=== PATIENT | male | born 1940 | race Caucasian/White ===

== ENCOUNTER 2018-02-11 15:12 | Emergency (ER) | payer MEDICARE, OTHER, SELFPAY ==
[2018-02-11 15:19] VITALS: BP 132/70; PULSE 58; RESP 18; TEMP 36.9; O2SAT 97; BMI 29.7
--- NOTE | 2018-02-11 15:32 | DI.US.S_ITS ---
PROCEDURE: US PERIPH VENOUS LOW EXTREM RT INDICATIONS: swelling right lower extrem, h/o PE. TECHNIQUE: Real-time imaging, as well as color and pulse Doppler interrogation, were performed of the lower extremity deep veins from the inguinal ligament to the popliteal fossa. COMPARISON: None. FINDINGS: The deep veins are normally compressible, and free of intraluminal thrombus. Color and pulse Doppler demonstrate normal phasic intraluminal flow. There is normal augmentation response to distal compression maneuver. IMPRESSION: Negative for DVT Dictated by: Chano Snow M.D. on 02/11/2018 at 16:28 Approved by: Chano Snow M.D. on 02/11/2018 at 16:29
[2018-02-11 15:41] LABS: Hematocrit 39.8 % (41-53); Hemoglobin 13.6 g/dL (13.5-17.5); Mean Corpuscular HGB Conc 34.3 % (30-36); Mean Corpuscular Hemoglobin 32.2 PG (26-34); Platelet Count 256 X10^3/uL (150-400); Red Blood Cell Count 4.23 X10^6/uL (4.5-5.9); Red Cell Distribution Width 14.6 % (11.6-14.8); White Blood Cell Count 6.5 X10^3/uL (4.5-11.0)
[2018-02-11 15:58] LABS: Alanine Aminotransferase 28 IU/L (21-72); Albumin 4.5 g/dL (3.5-5.0); Albumin Globulin Ratio 1.4 (1.0-2.8); Alkaline Phosphatase 34 U/L (38-126); Aspartate Aminotransferase 23 IU/L (17-59); Bilirubin Total 0.4 mg/dL (0.2-1.3); Blood Urea Nitrogen 27 mg/dL (9-20); Calcium 9.4 mg/dL (8.4-10.2); Carbon Dioxide 26 mmol/L (22-32); Chloride 102 mmol/L (98-107); Estimated Glomerular Filt Rate > 60.0 mL/min (>60); Globulin 3.3 g/dL (1.7-4.1); Glucose 65 mg/dL (80-110); HEMOLYSIS 27 (0-50); Potassium 4.4 mmol/L (3.4-5.1); Sodium 143 mmol/L (137-145); Total Protein 7.8 g/dL (6.3-8.2); Uric Acid 9.3 mg/dL (3.5-8.5)
[2018-02-11 16:20] LABS: Neutrophils Absolute Manual 3835 /uL (3000-5900); Total Cells Counted 100
--- NOTE | 2018-02-11 16:51 | ED.EXTPRO ---
HPI - Extremity Problem <SHARITA Bear - Last Filed: 02/11/18 22:28> General Chief complaint: Extremity Problem,Nontraumatic Stated complaint: R ANKLE SWELLING,TROUBLE WALKING Time Seen by Provider: 02/11/18 17:06 History of Present Illness HPI Narrative: 77-year-old male with history of diabetes and also gout. Here for complaint of pain into his right ankle with swelling over the past few days. He reports that he has had similar symptoms in the past he does report that he has been treated for gout in the past he states that when he gets symptoms like this and normally last for about a week and then resolved on its own. He denies any trauma to the right ankle. He denies any shortness of breath. Pain is limited to the right ankle. No fevers no chills. He reports decreased pain today compared to yesterday. He does report that yesterday was a little bit more red than it is today. He denies any other concerns or complaints. MD Complaint: extremity pain Related Data Home Medications Medication Instructions Recorded Confirmed glipizide 10 mg PO AMAC #0 06/25/17 02/11/18 [Diabetic Shoes] 1 dev MISCELLANEOUS DIRECTED 02/11/18 02/11/18 methotrexate sodium 0.5 ml PO SEEINSTR 02/11/18 02/11/18 methotrexate sodium 5 tab PO DIRECTED 02/11/18 02/11/18 metoprolol succinate 50 mg PO QPM 02/11/18 02/11/18 simvastatin [Zocor] 20 mg PO QPM 02/11/18 02/11/18 timolol 1 drp OPHTHALMIC (EYE) BID 02/11/18 02/11/18 warfarin [Coumadin] 5 - 15 mg PO HS 02/11/18 02/11/18 Previous Rx's Medication Instructions Recorded doxazosin 4 mg PO HS #90 tab 05/16/17 metformin [Glucophage] 1,000 mg PO BIDCC #180 tab 05/16/17 Glucose: Test Strips 0 str SEE INSTRUCTIONS #400 06/04/17 lisinopril 2.5 mg PO QDAY #90 tab 07/03/17 furosemide 40 mg PO QDAY #90 tab 09/17/17 potassium chloride [Klor-Con M20] 20 meq PO QDAY #30 tab 09/17/17 levothyroxine [Synthroid] 50 mcg PO QDAY #90 tab 10/22/17 colchicine 0.6 mg PO BID #20 tab 02/11/18 Allergies Allergy/AdvReac Type Severity Reaction Status Date / Time No Known Drug Allergies Allergy Verified 02/11/18 15:23 Review of Systems <SHARITA Bear - Last Filed: 02/11/18 22:28> Constitutional Denies chills, Denies fever(s), Denies lethargy and Denies weakness Eyes Denies change in vision, Denies eye discharge, Denies irritation and Denies loss of vision ENT Ears, Nose, Mouth, and Throat: Denies change in voice, Denies neck pain and Denies sore throat Cardiovascular Denies chest pain, Denies irregular heart rhythm, Denies lightheadedness, Denies palpitations, Denies dyspnea, Denies dyspnea on exertion and Denies orthopnea Respiratory Denies cough, Denies dyspnea, Denies dyspnea on exertion and Denies wheezing Gastrointestinal Gastrointestinal: Denies abdominal pain, Denies change in bowel habits, Denies diarrhea, Denies nausea and Denies vomiting Genitourinary Denies hematuria, Denies flank pain, Denies urinary incontinence and Denies urinary urgency Musculoskeletal Denies neck pain Comments: Right ankle pain Integumentary/Breasts Denies pruritus, Denies erythema, Denies rash and Denies wounds Neurologic Denies confusion, Denies loss of vision and Denies weakness Psychiatric Denies anxiety, Denies confusion, Denies depression, Denies homicidal ideation and Denies suicidal ideation Endocrine Denies palpitations Hematologic/Lymphatic Denies easy bruising Allergic/Immunologic Denies wheezing Exam <SHARITA Bear - Last Filed: 02/11/18 22:28> Initial Vital Signs Initial Vital Signs: Vital Signs Temperature 98.5 F 02/11/18 15:19 Pulse Rate 58 L 02/11/18 15:19 Respiratory Rate 18 02/11/18 15:19 Blood Pressure 132/70 H 02/11/18 15:19 Pulse Oximetry 97 02/11/18 15:19 Const General: cooperative and well developed Nutritional Appearance: well nourished Orientation: alert, awake, oriented x3 and not confused HENMT Mouth: oral mucosae normal and moist mucous membranes Eyes Conjunctivae: conjunctivae normal Sclera: sclerae normal Pupils: PERRL EOM: EOM intact bilaterally Resp Effort & Inspection: normal respiratory effort, able to speak in complete sentences, no respiratory distress and no use of accessory muscles Auscultation: clear to auscultation bilaterally, no rales, no rhonchi and no wheezes Cardio Rate: regular rate Rhythm: regular rhythm Heart Sounds: no click, no gallops, no murmurs and no rubs Pulses: normal peripheral pulses Skin General: no rashes or lesions noted, No jaundice and No petechiae Extrem Other: Swelling over the right ankle. No erythema. No increased temperature to palpation. Homans sign is negative. Distal sensation is intact. Distal range of motion is intact. Distal pulses are intact <Bryan Bustos DO - Last Filed: 02/14/18 14:10> Initial Vital Signs Initial Vital Signs: Vital Signs Temperature 98.5 F 02/11/18 15:19 Pulse Rate 58 L 02/11/18 15:19 Respiratory Rate 18 02/11/18 15:19 Blood Pressure 132/70 H 02/11/18 15:19 Pulse Oximetry 97 02/11/18 15:19 Course <SHARITA Bear - Last Filed: 02/11/18 22:28> Orders Ordered: Discontinued Medications Colchicine (Colcrys) 0.6 mg PO NOW ONE Stop: 02/11/18 17:22 Last Admin: 02/11/18 17:43 Dose: 0.6 mg Vital Signs - 8 hr 02/11/18 15:19 18 17:06 18 18:05 Temperature 98.5 F 97.2 F L Pulse Rate 58 L 56 L Respiratory Rate 18 17 20 Blood Pressure 132/70 H Blood Pressure [Left Arm] 100/81 H 184/64 H Pulse Oximetry 97 97 100 <Bryan Bustos DO - Last Filed: 02/14/18 14:10> Orders Ordered: Discontinued Medications Colchicine (Colcrys) 0.6 mg PO NOW ONE Stop: 02/11/18 17:22 Last Admin: 02/11/18 17:43 Dose: 0.6 mg Vital Signs - 8 hr 02/11/18 15:19 02/11/18 17:06 02/11/18 18:05 Temperature 98.5 F 97.2 F L Pulse Rate 58 L 56 L Respiratory Rate 18 17 20 Blood Pressure 132/70 H Blood Pressure [Left Arm] 100/81 H 184/64 H Pulse Oximetry 97 97 100 MDM - Extremity (Nontraumatic) <SHARITA Bear - Last Filed: 02/11/18 22:28> Lab Data Result diagrams: 02/11/18 15:31 02/11/18 15:31 Lab Results 02/11/18 02/11/18 Range/Units 15:31 15:31 WBC 6.5 (4.5-11.0) X10^3/uL RBC 4.23 L (4.5-5.9) X10^6/uL Hgb 13.6 (13.5-17.5) g/dL Hct 39.8 L (41-53) % MCV 94.0 (80-100) fL MCH 32.2 (26-34) PG MCHC 34.3 (30-36) % RDW 14.6 (11.6-14.8) % Plt Count 256 (150-400) X10^3/uL Total Counted 100 Seg Neutrophils % 57.0 (38-70) % Band Neutrophils % 2.0 L (3-7) % Lymphocytes % (Manual) 28.0 (25-45) % Monocytes % (Manual) 6.0 (2-11) % Eosinophils % (Manual) 7.0 H (2-4) % Neutrophils # (Manual) 3835 (7847-0226) /uL RBC Morphology Not Reportable Sodium 143 (137-145) mmol/L Potassium 4.4 (3.4-5.1) mmol/L Chloride 102 (98-107) mmol/L Carbon Dioxide 26 (22-32) mmol/L BUN 27 H (9-20) mg/dL Creatinine 1.00 (0.66-1.25) mg/dL Estimated GFR > 60.0 (>60) mL/min BUN/Creatinine Ratio 27.0 H (6-22) Glucose 65 L (80-110) mg/dL Uric Acid 9.3 H (3.5-8.5) mg/dL Calcium 9.4 (8.4-10.2) mg/dL Total Bilirubin 0.4 (0.2-1.3) mg/dL AST 23 (17-59) IU/L ALT 28 (21-72) IU/L Alkaline Phosphatase 34 L (38-126) U/L Total Protein 7.8 (6.3-8.2) g/dL Albumin 4.5 (3.5-5.0) g/dL Globulin 3.3 (1.7-4.1) g/dL Albumin/Globulin Ratio 1.4 (1.0-2.8) Imaging Data lower extremity doppler: Radiologist's impression: PROCEDURE: US PERIPH VENOUS LOW EXTREM RT INDICATIONS: swelling right lower extrem, h/o PE. TECHNIQUE: Real-time imaging, as well as color and pulse Doppler interrogation, were performed of the lower extremity deep veins from the inguinal ligament to the popliteal fossa. COMPARISON: None. FINDINGS: The deep veins are normally compressible, and free of intraluminal thrombus. Color and pulse Doppler demonstrate normal phasic intraluminal flow. There is normal augmentation response to distal compression maneuver. IMPRESSION: Negative for DVT Dictated by: Chano Snow M.D. on 02/11/2018 at 16:28 Approved by: Chano Snow M.D. on 02/11/2018 at 16:29 ankle: Radiologist's impression: PROCEDURE: XR ANKLE RT MIN 3V INDICATIONS: Swelling and pain to right ankle TECHNIQUE: 3 views of the ankle were acquired. COMPARISON: None. FINDINGS: Bones: No fractures or dislocations. Ankle mortise is normally aligned. No suspicious bony lesions. Soft tissues: No tibiotalar joint effusion. Achilles tendon appears normal. There is mild lateral malleolar soft tissue swelling. There are scattered soft tissue vascular calcifications. IMPRESSION: No acute fracture dislocation. Mild lateral malleolar soft tissue swelling. If pain persists then further characterization is warranted, consider advanced imaging with MRI or CT. Dictated by: Moraima Porter M.D. on 02/11/2018 at 17:37 Approved by: Moraima Porter M.D. on 02/11/2018 at 17:38 MDM Narrative Medical decision making narrative: Ultrasound of the right lower extremity was obtained was negative for any acute findings. X-ray was negative for any acute findings. CBC and Chem panel were unremarkable. Uric acid was elevated at 9.3. Will treat as gout with colchicine. Patient is encouraged to follow up with primary care provider later this week for re-evaluation. For any worsening symptoms return to the emergency room. Patient states has gout medication at home will allow patient to use if it is indomethacin to help with discomfort. Otherwise use [id number] Tylenol or Motrin as needed for any discomfort. Return emergency room for any worsening symptoms. INR was obtained and was at 1.9 patient states that he has been eating a lot of green leafy vegetables. He is instructed to cut down on leafy vegetables distal little bit to see if it helps with his INR. Therapeutic range for him to his is between 2 and 3. <Bryan Bustos, DO - Last Filed: 02/14/18 14:10> Lab Data Lab Results 02/11/18 02/11/18 Range/Units 15:31 15:31 WBC 6.5 (4.5-11.0) X10^3/uL RBC 4.23 L (4.5-5.9) X10^6/uL Hgb 13.6 (13.5-17.5) g/dL Hct 39.8 L (41-53) % MCV 94.0 (80-100) fL MCH 32.2 (26-34) PG MCHC 34.3 (30-36) % RDW 14.6 (11.6-14.8) % Plt Count 256 (150-400) X10^3/uL Total Counted 100 Seg Neutrophils % 57.0 (38-70) % Band Neutrophils % 2.0 L (3-7) % Lymphocytes % (Manual) 28.0 (25-45) % Monocytes % (Manual) 6.0 (2-11) % Eosinophils % (Manual) 7.0 H (2-4) % Neutrophils # (Manual) 3835 (1232-9881) /uL RBC Morphology Not Reportable Sodium 143 (137-145) mmol/L Potassium 4.4 (3.4-5.1) mmol/L Chloride 102 (98-107) mmol/L Carbon Dioxide 26 (22-32) mmol/L BUN 27 H (9-20) mg/dL Creatinine 1.00 (0.66-1.25) mg/dL Estimated GFR > 60.0 (>60) mL/min BUN/Creatinine Ratio 27.0 H (6-22) Glucose 65 L (80-110) mg/dL Uric Acid 9.3 H (3.5-8.5) mg/dL Calcium 9.4 (8.4-10.2) mg/dL Total Bilirubin 0.4 (0.2-1.3) mg/dL AST 23 (17-59) IU/L ALT 28 (21-72) IU/L Alkaline Phosphatase 34 L (38-126) U/L Total Protein 7.8 (6.3-8.2) g/dL Albumin 4.5 (3.5-5.0) g/dL Globulin 3.3 (1.7-4.1) g/dL Albumin/Globulin Ratio 1.4 (1.0-2.8) Discharge Plan Departure Patient Disposition: Home, Self-Care Clinical Impression: Ankle pain, right Discharge Date/Time: 02/11/18 18:10 Interventions: ED Discharge Assessment Last Done: 02/11/18 18:08 Instructions: DI for Gout Activity Restrictions/Additional Instructions: Ultrasound and x-ray of the right ankle was negative. Blood work today with exception a uric acid was unremarkable. Uric acid was elevated at 9.3 pointing towards gout as the cause of the right ankle pain. I prescribed colchicine to help with gout. Plenty of fluids. May use the gout medication at home along with the colchicine if it is indomethacin to help with discomfort and inflammation. Otherwise use Tylenol and Motrin as needed for any discomfort. INR today was 1.9. Decreased slightly the amount of green leafy vegetables that you have been eating to see if it brings back up your INR follow up with her primary care provider later this week for re-evaluation. For any worsening symptoms return to the emergency room. Prescriptions: New colchicine 0.6 mg tablet 0.6 mg PO BID Qty: 20 RF: 0 No Action metformin [Glucophage] 1,000 MG tablet 1,000 mg PO BIDCC Qty: 180 RF: 1 doxazosin 4 MG tablet 4 mg PO HS Qty: 90 RF: 3 Glucose: Test Strips SEE INSTRUCTIONS Qty: 400 RF: 1 glipizide 5 MG tablet 10 mg PO AMAC Qty: 0 RF: 0 lisinopril 2.5 MG tablet 2.5 mg PO QDAY Qty: 90 RF: 3 furosemide 40 MG tablet 40 mg PO QDAY Qty: 90 RF: 3 potassium chloride [Klor-Con M20] 20 MEQ tablet,ER particles/crystals 20 meq PO QDAY Qty: 30 RF: 3 levothyroxine [Synthroid] 50 MCG tablet 50 mcg PO QDAY Qty: 90 RF: 2 methotrexate sodium 25 mg/mL solution 0.5 ml PO SEEINSTR RF: 0 [Diabetic Shoes] 1 dev miscellaneous DIRECTED RF: 0 methotrexate sodium 2.5 mg Tablet 5 tab PO DIRECTED RF: 0 timolol 0.5 % Drops 1 drp ophthalmic (eye) BID RF: 0 metoprolol succinate 50 MG tablet extended release 24 hr 50 mg PO QPM RF: 0 simvastatin [Zocor] 20 MG tablet 20 mg PO QPM RF: 0 warfarin [Coumadin] 5 MG tablet 5 - 15 mg PO HS RF: 0 Referrals: Joel Alas MD [Primary Care Provider] - <Bryan Bustos DO - Last Filed: 02/14/18 14:10> Cosign ED Attending Cosignature Attestation: I was immediately available in the department for consultation. This documentation has been reviewed and I agree with assessment and plan. Supervised by Bryan Bustos DO
[2018-02-11 17:06] VITALS: BP 100/81; RESP 17; TEMP 36.2; O2SAT 97
--- NOTE | 2018-02-11 17:21 | DI.RAD.S_ITS ---
PROCEDURE: XR ANKLE RT MIN 3V INDICATIONS: Swelling and pain to right ankle TECHNIQUE: 3 views of the ankle were acquired. COMPARISON: None. FINDINGS: Bones: No fractures or dislocations. Ankle mortise is normally aligned. No suspicious bony lesions. Soft tissues: No tibiotalar joint effusion. Achilles tendon appears normal. There is mild lateral malleolar soft tissue swelling. There are scattered soft tissue vascular calcifications. IMPRESSION: No acute fracture dislocation. Mild lateral malleolar soft tissue swelling. If pain persists then further characterization is warranted, consider advanced imaging with MRI or CT. Dictated by: Moraima Porter M.D. on 02/11/2018 at 17:37 Approved by: Moraima Porter M.D. on 02/11/2018 at 17:38
[2018-02-11] MEDS: COLCHICINE 0.6 MG TABLET PO (17:43)
[2018-02-11 18:05] VITALS: BP 184/64; PULSE 56; RESP 20; O2SAT 100
== END 2018-02-11 18:10 | disposition home or self-care (01) ==
PROVIDERS: Emergency Provider Nurse Practitioner Family; PCP Family Medicine
DX: M25.571 Pain in right ankle and joints of right foot (principal); M25.471 Effusion, right ankle
CPT/HCPCS: 36415; 73610; 80053; 84550; 85025; 93971; 99283; 99284

== ENCOUNTER → 2018-05-30 10:45 | Outpatient (CLI) | payer MEDICARE, OTHER, SELFPAY ==
[2018-05-30 12:09] LABS: Add Manual Diff / Slide Review NO; Basophils Percent Auto 0.6 % (0-2); Eosinophils Percent Auto 3.2 % (2-4); Hematocrit 40.4 % (41-53); Hemoglobin 13.4 g/dL (13.5-17.5); Lymphocytes Percent Auto 22.8 % (25-40); Mean Corpuscular HGB Conc 33.3 % (30-36); Mean Corpuscular Hemoglobin 31.7 PG (26-34); Mean Corpuscular Volume 95.3 fL (80-100); Neutrophils Absolute Auto 4600 /uL (3000-5900); Neutrophils Percent Auto 66.4 % (50-75); Platelet Count 255 X10^3/uL (150-400); Red Blood Cell Count 4.23 X10^6/uL (4.5-5.9); Red Cell Distribution Width 15.3 % (11.6-14.8); White Blood Cell Count 6.8 X10^3/uL (4.5-11.0)
[2018-05-30 12:50] LABS: Erythrocyte Sedimentation Rate 19 MM/HR (0-15)
[2018-05-30 12:58] LABS: Alanine Aminotransferase 38 IU/L (21-72); Albumin 4.4 g/dL (3.5-5.0); Albumin Globulin Ratio 1.5 (1.0-2.8); Alkaline Phosphatase 35 U/L (38-126); Aspartate Aminotransferase 31 IU/L (17-59); BUN Creatinine Ratio 23.6 (6-22); Bilirubin Total 0.8 mg/dL (0.2-1.3); Blood Urea Nitrogen 26 mg/dL (9-20); Calcium 9.1 mg/dL (8.4-10.2); Carbon Dioxide 29 mmol/L (22-32); Chloride 104 mmol/L (98-107); Cholesterol 137 mg/dL (140-199); Estimated Glomerular Filt Rate > 60.0 mL/min (>60); Globulin 2.9 g/dL (1.7-4.1); Glucose 141 mg/dL (80-110); HDL Cholesterol 53 mg/dL (40-60); HEMOLYSIS < 15 (0-50); LDL Cholesterol Calculated 64 mg/dL (<100); Potassium 4.7 mmol/L (3.4-5.1); Sodium 143 mmol/L (137-145); Total Protein 7.3 g/dL (6.3-8.2); Triglycerides 100 mg/dL (35-150); Uric Acid 9.5 mg/dL (3.5-8.5)
[2018-05-30 12:59] LABS: C-Reactive Protein Quant < 0.5 mg/dL (<1.0)
[2018-05-30 13:14] LABS: TSH w/ Reflex to FT4 1.62 uIU/mL (0.47-4.68)
[2018-05-30 17:29] LABS: Hemoglobin A1C% w Est Avg Glu 6.6 % (4.0-6.0)
== END ==
PROVIDERS: PCP Family Medicine; Visit Provider Family Medicine
DX: E03.9 Hypothyroidism, unspecified (principal); E78.5 Hyperlipidemia, unspecified; I10 Essential (primary) hypertension; M10.9 Gout, unspecified; M35.3 Polymyalgia rheumatica; E11.9 Type 2 diabetes mellitus without complications; E13.620 Other specified diabetes mellitus with diabetic dermatitis
CPT/HCPCS: 36415; 80053; 80061; 83036; 84443; 84550; 85025; 85651; 86140

== ENCOUNTER → 2018-12-30 10:37 | Outpatient (CLI) | payer MEDICARE, OTHER, SELFPAY ==
--- NOTE | 2018-12-30 10:39 | DI.RAD.S_ITS ---
PROCEDURE: XR CHEST 2V INDICATIONS: fu CHF TECHNIQUE: 2 views of the chest were acquired. COMPARISON: [facility], , CHEST 1 VIEW, 06/25/2017, 12:17. FINDINGS: Surgical changes and devices: None. Lungs and pleura: Lungs are clear. No pleural effusions or pneumothorax. Mediastinum: Mediastinal contours are normal. Heart size is normal. Bones and chest wall: No suspicious bony abnormalities. Soft tissues appear unremarkable. IMPRESSION: No significant cardiac enlargement or central venous congestion. Dictated by: Shima Chavis M.D. on 12/30/2018 at 12:16 Approved by: Shima Chavis M.D. on 12/30/2018 at 12:17
[2018-12-30 11:59] LABS: BUN Creatinine Ratio 26.2 (6-22); Blood Urea Nitrogen 34 mg/dL (9-20); Calcium 9.7 mg/dL (8.4-10.2); Carbon Dioxide 25 mmol/L (22-32); Chloride 99 mmol/L (98-107); Estimated Glomerular Filt Rate 53.1 mL/min (>60); Glucose 212 mg/dL (80-110); HEMOLYSIS < 15 (0-50); Sodium 138 mmol/L (137-145)
[2018-12-30 12:00] LABS: B Type Natriuretic Peptide < 100 (<100)
[2018-12-30 12:20] LABS: Potassium 5.4 mmol/L (3.4-5.1)
== END ==
PROVIDERS: PCP Family Medicine; Visit Provider Family Medicine
DX: I50.9 Heart failure, unspecified (principal); I10 Essential (primary) hypertension
CPT/HCPCS: 36415; 71046; 80048; 83880

== ENCOUNTER → 2019-01-15 12:14 | Outpatient (CLI) | payer MEDICARE, OTHER, SELFPAY ==
[2019-01-15 13:15] LABS: Blood Urea Nitrogen 20 mg/dL (9-20); Calcium 9.3 mg/dL (8.4-10.2); Carbon Dioxide 27 mmol/L (22-32); Chloride 103 mmol/L (98-107); Estimated Glomerular Filt Rate > 60.0 mL/min (>60); Glucose 121 mg/dL (80-110); HEMOLYSIS < 15 (0-50); Potassium 4.4 mmol/L (3.4-5.1); Sodium 138 mmol/L (137-145)
== END ==
PROVIDERS: PCP Family Medicine; Visit Provider Family Medicine
DX: I10 Essential (primary) hypertension (principal)
CPT/HCPCS: 36415; 80048

== ENCOUNTER → 2020-03-30 11:26 | Outpatient (CLI) | payer MEDICARE, OTHER, SELFPAY ==
[2020-03-30 12:04] LABS: Add Manual Diff / Slide Review NO; Basophils Absolute Auto 0 /uL (0-100); Basophils Percent Auto 0.5 % (0-2); Eosinophils Absolute Auto 300 /uL (0-450); Eosinophils Percent Auto 5.3 % (2-4); Hematocrit 39.9 % (41-53); Hemoglobin 13.3 g/dL (13.5-17.5); Lymphocytes Absolute Auto 2100 /uL (1100-4500); Lymphocytes Percent Auto 33.9 % (25-40); Mean Corpuscular HGB Conc 33.5 % (30-36); Mean Corpuscular Hemoglobin 30.3 PG (26-34); Mean Corpuscular Volume 90.5 fL (80-100); Monocytes Absolute Auto 500 /uL (0-900); Monocytes Percent Auto 8.1 % (3-14); Neutrophils Absolute Auto 3200 /uL (1500-7000); Neutrophils Percent Auto 52.2 % (50-75); Platelet Count 207 X10^3/uL (150-400); Red Blood Cell Count 4.41 X10^6/uL (4.5-5.9); Red Cell Distribution Width 13.9 % (11.6-14.8); White Blood Cell Count 6.2 X10^3/uL (4.5-11.0)
[2020-03-30 12:18] LABS: Hemoglobin A1C% w Est Avg Glu 8.1 % (4.0-6.0)
[2020-03-30 12:27] LABS: Alanine Aminotransferase 21 IU/L (<50); Albumin 4.4 g/dL (3.5-5.0); Albumin Globulin Ratio 1.8 (1.0-2.8); Alkaline Phosphatase 35 U/L (38-126); Aspartate Aminotransferase 22 IU/L (17-59); Bilirubin Total 0.6 mg/dL (0.2-1.3); Blood Urea Nitrogen 22 mg/dL (9-20); Calcium 9.6 mg/dL (8.4-10.2); Carbon Dioxide 25 mmol/L (22-32); Chloride 104 mmol/L (98-107); Estimated Glomerular Filt Rate > 60.0 mL/min (>60); Globulin 2.5 g/dL (1.7-4.1); Glucose 149 mg/dL (80-110); HEMOLYSIS < 15 (0-50); Potassium 4.8 mmol/L (3.4-5.1); Sodium 137 mmol/L (137-145); Total Protein 6.9 g/dL (6.3-8.2)
[2020-03-30 12:37] LABS: NT-proBNP (BNP-Adult 18+) 391 pg/mL (<450)
[2020-03-30 12:54] LABS: Microalbumin Urine Random 1.2 mg/dL (0-1.6)
[2020-03-30 12:59] LABS: Creatinine Urine Random 134.1 mg/dL; Microalbumi Creatinin Ratio Ur 8.9 ug/mg CR (<30)
[2020-03-30 13:00] LABS: TSH w/ Reflex to FT4 2.87 uIU/mL (0.47-4.68)
== END ==
PROVIDERS: PCP Family Medicine; Referring Provider Family Medicine; Visit Provider Family Medicine
DX: E03.9 Hypothyroidism, unspecified (principal); E11.9 Type 2 diabetes mellitus without complications; E78.5 Hyperlipidemia, unspecified; I48.92 Unspecified atrial flutter; I50.9 Heart failure, unspecified; I10 Essential (primary) hypertension
CPT/HCPCS: 36415; 80053; 82043; 82570; 83036; 83880; 84443; 85025

== ENCOUNTER 2020-10-07 11:20 | Emergency (ER) | payer MEDICARE, OTHER, SELFPAY ==
[2020-10-07 11:23] VITALS: BP 193/81; PULSE 61; RESP 15; TEMP 36.4; O2SAT 97; BMI 29.7
--- NOTE | 2020-10-07 11:53 | DI.RAD.S_ITS ---
PROCEDURE: XR LUMBAR SPINE 2-3V INDICATIONS: pain after plantng trees, hx back surg TECHNIQUE: 3 views of the lumbar spine were acquired. COMPARISON: None. FINDINGS: Bones: 5 [id number] vertebrae are present. There are bilateral pedicle screws in L4 and L5 as well as a interbody fusion. There are no posterior lateral rods connecting the pedicle screws. There is no evidence of hardware failure or loosening. There is mild degenerative anterolisthesis of L5 on S1. The other vertebral bodies are normally aligned. Lower lumbar facet hypertrophy. Suspect canal stenosis at L4-L5. No vertebral body compression fractures. No suspicious bony lesions. Soft tissues: Overlying bowel gas pattern is normal. No suspicious soft tissue calcifications. IMPRESSION: 1. Lower lumbar degenerative disc space loss and facet arthropathy. 2. No evidence of acute bony abnormality of the lumbar spine. 3. Suspect canal stenosis at L4-L5. Dictated by: Phu Samano M.D. on 10/07/2020 at 12:25 Approved by: Phu Samano M.D. on 10/07/2020 at 12:28
--- NOTE | 2020-10-07 11:57 | ED.BACK ---
HPI - Back Pain/Injury <Daja Rivas, [employer] - Last Filed: 10/07/20 14:31> General Chief Complaint: Back Pain/Injury Stated Complaint: back pain x 3 Time Seen by Provider: 10/07/20 11:31 Source: patient and family Mode of arrival: Ambulatory Limitations: no limitations History of Present Illness HPI Narrative: The patient is an 80-year-old male former smoker with history of diabetes, hypothyroid who presents with his for chief complaint of lower back pain for the past several days. He states that he was planting a tree outside a few days ago. Subsequently he has had low back pain and both sides of the spine, but is getting worse. Last night he states that he had terrible spasms to the point that his pain was a 10/10. He denies any new incontinence of bowel, incontinence of bladder or numbness in his groin. He denies any personal history of cancer or current fever. He has not taken anything for his pain today. He did take 2 tablets of 10-year-old oxycodone yesterday. Related Data Home Medications Medication Instructions Recorded Confirmed [Diabetic Shoes] 1 dev MISCELLANEOUS DIRECTED 02/11/18 04/05/20 timolol 1 drp OPHTHALMIC (EYE) BID 02/11/18 04/05/20 Previous Rx's Medication Instructions Recorded blood sugar diagnostic #400 each 12/15/19 metoprolol tartrate 50 mg tablet 50 mg PO BID #180 tab 01/27/20 metformin 1,000 mg tablet 1,000 mg PO BIDCC #180 tab 03/23/20 glipizide 10 mg tablet See Rx Instructions .ROUTE BID 04/06/20 #180 each sildenafil 100 mg tablet 50 mg PO DAILY PRN #10 tab 04/07/20 lisinopril 2.5 mg tablet 2.5 mg PO QDAY #90 tab 04/19/20 warfarin 5 mg tablet 5 mg PO HS #90 tab 04/19/20 spironolactone 25 mg tablet 25 mg PO DAILY #90 tab 06/30/20 doxazosin 4 mg tablet See Rx Instructions .ROUTE 07/26/20 .COMPLEX #90 tablet levothyroxine 50 mcg tablet 50 mcg PO DAILY #90 tab 08/09/20 simvastatin 20 mg tablet 20 mg PO QPM #90 tab 08/16/20 cyclobenzaprine 10 mg PO TID PRN #20 tab 10/07/20 hydrocodone-acetaminophen [Seadrift] 1 tab PO Q4-6H PRN #10 tab 10/07/20 lidocaine 1 patch TOPICAL DAILY PRN #15 ea 10/07/20 Allergies Allergy/AdvReac Type Severity Reaction Status Date / Time oyster extract Allergy Mild Vomiting Verified 10/07/20 11:27 Review of Systems <MADYSON Winters - Last Filed: 10/07/20 14:31> Review of Systems Narrative: GENERAL: Denies chills, fatigue, malaise, fever, sweats. HEENT: Denies sinus pain, ear pain, sore throat, difficulty swallowing, dizziness. RESPIRATORY: Denies dyspnea, cough, wheezing, hemoptysis, sputum. CARDIOVASCULAR: Denies chest pain, palpitations, orthopnea, edema, GASTROINTESTINAL: Denies nausea, vomiting, abdominal pain, diarrhea, constipation, melena. : Denies dysuria, frequency, incontinence, hematuria, urinary retention. MUSCULOSKELETAL: See HPI SKIN: Denies rash, skin lesions, or other NEUROLOGIC: Denies weakness, headache, numbness, change in speech, confusion, seizures, incoordination. PSYCHIATRIC: No concerning psychosocial issues. 12 point review of systems is negative except for those stated above Patient History <MADYSON Winters - Last Filed: 10/07/20 14:31> Medical History Diabetes mellitus Hyperlipidemia Hypertension Lumbar spine pain Surgical History Status post laminectomy (2011) Status post transurethral resection of prostate Family History Father CAD (coronary artery disease) Social History marital status: Smoking Status: Former smoker alcohol intake: current (ON OCCASION ) substance use type: does not use Smoking Status: Former smoker alcohol intake frequency: a few times a month Substance Use Type: does not use Exam <MADYSON Winters - Last Filed: 10/07/20 14:31> Narrative Exam Narrative: GENERAL: This is a well-nourished, well-developed patient, in no acute distress with at bedside HEAD: Atraumatic. Normocephalic. No temporal or scalp tenderness. EYES: Pupils equal round and reactive. Extraocular motions intact. No scleral icterus. No injection or drainage. ENT: Nose without bleeding, purulent drainage or septal hematoma. On visible skin. Airway patent. NECK: Trachea midline. No JVD or lymphadenopathy. Supple, nontender, no meningeal signs. CARDIOVASCULAR: Regular rate and rhythm RESPIRATORY: Clear to auscultation. Breath sounds equal bilaterally. No wheezes, rales, or rhonchi. No cough. No increased respiratory effort. No accessory muscle use GASTROINTESTINAL: Abdomen soft, non-tender, nondistended. Active bowel sounds all 4 quadrants EXTREMITIES: No clubbing, cyanosis, or edema. No joint tenderness, effusion, or edema noted. BACK: Midline CT and L-spine are Nontender without deformity or crepitance. Pain to palpation of bilateral paraspinal muscles in the lumbar region NEURO: AOx3. Clear speech. Strength is equal upper lower extremities bilaterally. Stable gait. SKIN: No rash or erythema on visible skin. No rash on lower back. Initial Vital Signs Initial Vital Signs: Vital Signs Temperature 97.6 F 10/07/20 11:23 Pulse Rate 61 10/07/20 11:23 Respiratory Rate 15 10/07/20 11:23 Blood Pressure 193/81 H 10/07/20 11:23 Pulse Oximetry 97 10/07/20 11:23 <Daja Drew DO - Last Filed: 10/07/20 19:23> Initial Vital Signs Initial Vital Signs: Vital Signs Temperature 97.6 F 10/07/20 11:23 Pulse Rate 61 10/07/20 11:23 Respiratory Rate 15 10/07/20 11:23 Blood Pressure 193/81 H 10/07/20 11:23 Pulse Oximetry 97 10/07/20 11:23 Scores <MADYSON Winters - Last Filed: 10/07/20 14:31> GCS [place] coma scale eye opening: Spontaneous [place] coma scale verbal response: Orientated [place] coma scale motor response: Obey commands [place] coma scale total score: 15 Course <MADYSON Winters - Last Filed: 10/07/20 14:31> Orders Ordered: ED Orders 10/07/20 11:53 XR lumbar spine 2-3V Stat 10/07/20 12:14 Urine Microscopic Stat Discontinued Medications Hydrocodone Bitart/Acetaminophen (Hydrocodone/Acet 5/325 Tablet) 1 tab PO NOW ONE Stop: 10/07/20 13:08 Last Admin: 10/07/20 13:33 Dose: 1 tab Documented by: SRIRAM Cyclobenzaprine HCl (Cyclobenzaprine 10 Mg Tablet) 10 mg PO NOW ONE Stop: 10/07/20 11:54 Last Admin: 10/07/20 12:12 Dose: 10 mg Documented by: SRIRAM Lidocaine (Lidocaine Patch 1 Each Adh..Patch) 1 each TOP NOW ONE Stop: 10/07/20 11:54 Last Admin: 10/07/20 12:12 Dose: 1 each Documented by: SRIRAM Vital Signs Vital signs: Vital Signs - 8 hr 10/07/20 11:23 10/07/20 14:11 Temperature 97.6 F Pulse Rate 61 54 L Respiratory Rate 15 16 Blood Pressure 193/81 H 136/61 Pulse Oximetry 97 96 <Daja Drew, - Last Filed: 10/07/20 19:23> Orders Ordered: ED Orders 10/07/20 11:53 XR lumbar spine 2-3V Stat 10/07/20 12:14 Urine Microscopic Stat Discontinued Medications Hydrocodone Bitart/Acetaminophen (Hydrocodone/Acet 5/325 Tablet) 1 tab PO NOW ONE Stop: 10/07/20 13:08 Last Admin: 10/07/20 13:33 Dose: 1 tab Documented by: SRIRAM Cyclobenzaprine HCl (Cyclobenzaprine 10 Mg Tablet) 10 mg PO NOW ONE Stop: 10/07/20 11:54 Last Admin: 10/07/20 12:12 Dose: 10 mg Documented by: SRIRAM Lidocaine (Lidocaine Patch 1 Each Adh..Patch) 1 each TOP NOW ONE Stop: 10/07/20 11:54 Last Admin: 10/07/20 12:12 Dose: 1 each Documented by: SRIRAM Vital Signs Vital signs: Vital Signs - 8 hr 10/07/20 11:23 10/07/20 14:11 Temperature 97.6 F Pulse Rate 61 54 L Respiratory Rate 15 16 Blood Pressure 193/81 H 136/61 Pulse Oximetry 97 96 MDM - Back Pain/Injury <MADYSON Winters - Last Filed: 10/07/20 14:31> Lab Data Labs: Lab Results 10/07/20 Range/Units 12:14 Urine RBC None seen (0-5/HPF) Urine WBC None seen (0-5/HPF) Amorphous Sediment 2+ Urine Bacteria None seen (None) Ur Culture Indicated? Cult not indicated Urine Dip Bedside Urine Glucose Negative Bedside Urine Bilirubin - Negative Bedside Urine Ketone - Negative Urine Specific [place] 1.030 Bedside Urine Occult Blood +/- Bedside Urine pH 6.0 Bedside Urine Protein - Negative Bedside Urine Urobilinogen - Negative Bedside Urine Nitrite - Negative Bedside Urine Leukocytes - Negative Esterase Imaging Data lumbar xr: Radiologist's Impression: [address] [place] [id number] ReportSigned Patient: Odell Yun EMR#: [id number]: 8Acct:[id number]/Sex: 80 / MDate of Service: 10/07/20Loc: EDAccession Number: [id number] Procedure: XR lumbar spine 2-3V Ordering Provider: Daja Rivas PROCEDURE: XR LUMBAR SPINE 2-3V INDICATIONS: pain after plantng trees, hx back surg TECHNIQUE: 3 views of the lumbar spine were acquired. COMPARISON: None. FINDINGS: Bones: 5 [id number] vertebrae are present. There are bilateral pedicle screws in L4 and L5 as well as a interbody fusion. There are no posterior lateral rods connecting the pedicle screws. There is no evidence of hardware failure or loosening. There is mild degenerative anterolisthesis of L5 on S1. The other vertebral bodies are normally aligned. Lower lumbar facet hypertrophy. Suspect canal stenosis at L4-L5. No vertebral body compression fractures. No suspicious bony lesions. Soft tissues: Overlying bowel gas pattern is normal. No suspicious soft tissue calcifications. IMPRESSION: 1. Lower lumbar degenerative disc space loss and facet arthropathy. 2. No evidence of acute bony abnormality of the lumbar spine. 3. Suspect canal stenosis at L4-L5. Dictated by: Phu Samano M.D. on 10/07/2020 at 12:25 Approved by: Phu Samano M.D. on 10/07/2020 at 12:28 [facility] Narrative Medical decision making narrative: The patient is an 80-year-old male who presents with a chief complaint of lower back pain for the past several days after he was planting trees. He has no acute neurological deficits, denies any red flag symptoms such as fever, incontinence bowel incontinence of bladder numbness in his groin. He and his state understanding that these are strict ER return precautions. He feels much improved after the above-stated therapies, so prescriptions are provided. He was able to ambulate throughout the ER with steady gait independently. Discussed at length that Flexeril can be sedating, narcotics can be constipating and sedating, held off on NSAIDs given Coumadin. Encouraged follow-up primary care provider in the next few days as he may benefit from physical therapy etcetera. Patient and have no questions or concerns upon discharge states understanding return precautions as well as follow-up care. <Daja Drew, DO - Last Filed: 10/07/20 19:23> Lab Data Labs: Lab Results 10/07/20 Range/Units 12:14 Urine RBC None seen (0-5/HPF) Urine WBC None seen (0-5/HPF) Amorphous Sediment 2+ Urine Bacteria None seen (None) Ur Culture Indicated? Cult not indicated Urine Dip Bedside Urine Glucose Negative Bedside Urine Bilirubin - Negative Bedside Urine Ketone - Negative Urine Specific [place] 1.030 Bedside Urine Occult Blood +/- Bedside Urine pH 6.0 Bedside Urine Protein - Negative Bedside Urine Urobilinogen - Negative Bedside Urine Nitrite - Negative Bedside Urine Leukocytes - Negative Esterase Discharge Plan Departure Patient Disposition: Home Clinical Impression: Lower back pain Qualifiers: Chronicity: acute Back pain laterality: bilateral Sciatica presence: without sciatica Qualified Code(s): M54.5 - Low back pain Instructions: DI for Low Back Pain, DI for Back Spasm Activity Restrictions/Additional Instructions: Thank you for trusting us with your care today As I discussed, your x-ray shows no acute fracture. This does not rule out a soft tissue injury such as a ligament or tendon injury. It is important that you follow up with primary care provider, especially if worsening or no improvement. There can be fractures that did not show up on initial x-ray. As discussed, please come back to the ER for any acute concerns such as incontinence of bowel, incontinence of bladder or numbness in her groin I sent 3 different prescriptions to [facility] in [place]. This includes a muscle relaxer which can be sedating, Seadrift for pain, and lidocaine patches You have been prescribed narcotic medications. While on these medications you cannot drive or operate heavy machinery. Additionally you cannot sign legal documents or perform any duties such as this. 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 Please follow-up with primary care provider in the next few days. Please come back to the emergency department for any acute concerns Prescriptions: New cyclobenzaprine 10 mg tablet 10 mg PO TID PRN (Reason: muscle spasm) Qty: 20 RF: 0 hydrocodone-acetaminophen [Seadrift] 5-325 mg tablet 1 tab PO Q4-6H PRN (Reason: pain) Qty: 10 RF: 0 lidocaine 5 % adhesive patch,medicated 1 patch topical DAILY PRN (Reason: pain) Qty: 15 RF: 0 No Action (DME) blood sugar diagnostic [Blood Glucose Test] Strip See Rx Instructions .ROUTE .MEDSUPPLY Qty: 400 RF: 3 metoprolol tartrate 50 mg tablet 50 mg PO BID Qty: 180 RF: 3 metformin [Glucophage] 1,000 mg tablet 1,000 mg PO BIDCC Qty: 180 RF: 3 glipizide 10 mg tablet See Rx Instructions .ROUTE BID Qty: 180 RF: 3 sildenafil 100 mg tablet 50 mg PO DAILY PRN (Reason: sexual activity) Qty: 10 RF: 1 lisinopril 2.5 mg tablet 2.5 mg PO QDAY Qty: 90 RF: 3 warfarin 5 mg tablet 5 mg PO HS Qty: 90 RF: 3 spironolactone 25 mg tablet 25 mg PO DAILY Qty: 90 RF: 3 doxazosin 4 mg tablet See Rx Instructions .ROUTE .COMPLEX Qty: 90 RF: 3 levothyroxine [Synthroid] 50 mcg tablet 50 mcg PO DAILY Qty: 90 RF: 3 simvastatin 20 mg tablet 20 mg PO QPM Qty: 90 RF: 1 [Diabetic Shoes] 1 dev miscellaneous DIRECTED RF: 0 timolol 0.5 % Drops 1 drp ophthalmic (eye) BID RF: 0 Referrals: Joel Alas MD [Primary Care Provider] - <Daja Drew DO - Last Filed: 10/07/20 19:23> Cosign ED Attending Cosignature Attestation: I was immediately available in the department for consultation. Documentation has been reviewed.
[2020-10-07] MEDS: CYCLOBENZAPRINE 10 MG TABLET PO (12:12)
[2020-10-07] MEDS: LIDOCAINE PATCH 1 EACH ADH..PATCH TOP (12:12)
[2020-10-07 12:20] LABS: Bacteria Urine None Seen; RBC Urine None Seen (0-5/HPF); WBC Urine None Seen (0-5/HPF)
[2020-10-07 12:32] LABS: Amorphous Sediment Urine 2+; Culture Indicated Urine Cult Not Indicated
[2020-10-07] MEDS: HYDROCODONE/ACET 5/325 TABLET 1 TAB PO (13:33)
[2020-10-07 14:11] VITALS: BP 136/61; PULSE 54; RESP 16; O2SAT 96
== END 2020-10-07 14:12 | disposition home or self-care (01) ==
PROVIDERS: Emergency Provider Nurse Practitioner Family; PCP Family Medicine
DX: M54.5 Low back pain (principal); E11.9 Type 2 diabetes mellitus without complications; E78.5 Hyperlipidemia, unspecified; I10 Essential (primary) hypertension
CPT/HCPCS: 72100; 81003; 81015; 99283

== ENCOUNTER 2020-10-11 10:57 | Emergency (ER) | payer MEDICARE, OTHER, SELFPAY ==
--- NOTE | 2020-10-11 10:57 | ED_ITS ---
HPI - Back Pain/Injury General Chief Complaint: Back Pain/Injury Stated Complaint: back pain Time Seen by Provider: 10/11/20 10:57 Source: patient and family Mode of arrival: Ambulatory Limitations: no limitations History of Present Illness HPI Narrative: 80-year-old male former smoker with history of AFib on Coumadin, hypertension, hyperlipidemia sciatica with prior laminectomy presents with ongoing, worsening lumbar pain for the past week or so. He denies any specific trauma but states that things seem to developed after working in the [employer]. The pain is quite severe, sometimes 10/10 in his lower back but does not radiate down his legs. He denies any numbness, tingling, weakness or footdrop but does state maybe he has been having trouble controlling his bladder. He denies any fever or chills, denies any significant midline pain, denies any history of IV drugs. He was seen and evaluated here on October 07, had an x-ray that showed no significant findings and a clean urine. He was prescribed pain medications, lidoderm and states that his symptoms are worsening despite his best efforts. He called his primary care provider who encouraged him to come here for evaluation MD Complaint: back pain Onset (ago): day(s) Duration: constant and progressively worsening Similar Symptoms Previously: Yes Location: lumbar spine Severity: severe Quality: sharp and aching Radiation: none Severity scale (1-10): 10 Relieving factors: immobilization Exacerbating factors: movement and walking Associated symptoms: difficulty walking and urinary incontinence Treatments prior to arrival: prescription analgesics Related Data Home Medications Medication Instructions Recorded Confirmed [Diabetic Shoes] 1 dev MISCELLANEOUS DIRECTED 02/11/18 10/11/20 timolol 1 drp OPHTHALMIC (EYE) BID 02/11/18 10/11/20 doxazosin 4 mg PO QPM 10/11/20 10/11/20 glipizide 10 mg PO BID 10/11/20 10/11/20 levothyroxine [Synthroid] 50 mcg PO QAM 10/11/20 10/11/20 lisinopril 2.5 mg PO QAM 10/11/20 10/11/20 spironolactone 25 mg PO QPM 10/11/20 10/11/20 Previous Rx's Medication Instructions Recorded blood sugar diagnostic #400 each 12/15/19 metoprolol tartrate 50 mg tablet 50 mg PO BID #180 tab 01/27/20 metformin 1,000 mg tablet 1,000 mg PO BIDCC #180 tab 03/23/20 sildenafil 100 mg tablet 50 mg PO DAILY PRN #10 tab 04/07/20 warfarin 5 mg tablet 5 mg PO HS #90 tab 04/19/20 simvastatin 20 mg tablet 20 mg PO QPM #90 tab 08/16/20 cyclobenzaprine 10 mg PO TID PRN #20 tab 10/07/20 hydrocodone-acetaminophen [[place]] 1 tab PO Q4-6H PRN #10 tab 10/07/20 lidocaine 1 patch TOPICAL DAILY PRN #15 ea 10/07/20 cyclobenzaprine 10 mg PO TID PRN #14 tab 10/11/20 gabapentin 300 mg PO BEDTIME #14 cap 10/11/20 oxycodone 5 mg PO Q4-6H PRN #10 tab 10/11/20 Allergies Allergy/AdvReac Type Severity Reaction Status Date / Time oyster extract Allergy Mild Vomiting Verified 10/07/20 11:27 Review of Systems Constitutional Constitutional: Denies chills, Denies fatigue, Denies fever(s), Denies frequent falls, Denies lethargy and Denies weakness Eyes Eyes: Denies change in vision, Denies eye discharge, Denies irritation and Denies loss of vision ENT Ears, Nose, Mouth, and Throat: Denies change in voice, Denies dizziness, Denies neck pain, Denies sore throat and Denies throat swelling Cardiovascular Cardiovascular: Denies chest pain, Denies irregular heart rhythm, Denies lightheadedness, Denies palpitations, Denies dyspnea, Denies dyspnea on exertion and Denies orthopnea Respiratory Respiratory: Denies cough, Denies dyspnea, Denies dyspnea on exertion and Denies wheezing Gastrointestinal Gastrointestinal: Denies abdominal pain, Denies change in bowel habits, Denies diarrhea, Denies nausea and Denies vomiting Musculoskeletal Musculoskeletal: Reports back pain, Denies neck pain and Denies numbness Integumentary/Breasts Skin/Breast: Denies pruritus, Denies erythema, Denies rash and Denies wounds Neurologic Neurologic: Denies behavioral changes, Denies confusion, Denies dizziness, Denies frequent falls, Denies loss of vision, Denies numbness and Denies weakness Psychiatric Psychiatric: Denies anxiety, Denies behavioral changes, Denies confusion, Denies depression, Denies homicidal ideation and Denies suicidal ideation Endocrine Endocrine: Denies fatigue, Denies flushing and Denies palpitations Hematologic/Lymphatic Hematologic/Lymphatic: Denies easy bruising Allergic/Immunologic Allergic/Immunologic: Denies urticaria, Denies throat swelling and Denies wheezing Patient History Medical History (Updated 10/11/20 @ 13:04 by Travis Rodríguez DO) Diabetes mellitus Hyperlipidemia Hypertension Lumbar spine pain Surgical History Status post laminectomy (2011) Status post transurethral resection of prostate Family History Father CAD (coronary artery disease) Social History marital status: Smoking Status: Former smoker alcohol intake: current (ON OCCASION ) substance use type: does not use Smoking Status: Former smoker alcohol intake frequency: a few times a month Substance Use Type: does not use Exam Narrative Exam Narrative: GENERAL: [80] year old patient appears stated age. Well- nourished, well-developed patient, in mild distress. HEAD: Atraumatic. Normocephalic. EYES: Pupils equal round and reactive. Extraocular motions intact. No scleral icterus. No injection or drainage. ENT: Nose without bleeding, purulent drainage. Throat without erythema, tonsillar hypertrophy or exudate. Airway patent. NECK: Trachea midline. Non tender CARDIOVASCULAR: Regular rate and rhythm without murmurs, gallops, or rubs. RESPIRATORY: Clear to auscultation. Breath sounds equal bilaterally. No wheezes, rales, or rhonchi. GASTROINTESTINAL: Abdomen soft, non-tender, nondistended. EXTREMITIES: No edema or joint tenderness. BACK: Severe lower back pain, no midline bony tenderness, pain is in the paraspinal musculature her in the lumbar region. No measurable lower extremity weakness. Patellar reflexes 1+ bilaterally. No decreased sensation, no saddle anesthesia. NEURO: AOx3. SKIN: No rash or erythema of visible areas Initial Vital Signs Initial Vital Signs: Vital Signs Temperature 98.1 F 10/11/20 11:05 Pulse Rate 61 10/11/20 11:05 Respiratory Rate 18 10/11/20 11:05 Blood Pressure 140/64 10/11/20 11:05 Pulse Oximetry 98 10/11/20 11:05 Course Orders Ordered: ED Orders 10/11/20 11:06 MR lumbar spine wo con Stat 10/11/20 12:25 Basic Metabolic Panel Stat Complete Blood Count AUTO DIFF Stat Prothrombin Time INR Stat Vital Signs Vital signs: Vital Signs - 8 hr 10/11/20 11:05 Temperature 98.1 F Pulse Rate 61 Respiratory Rate 18 Blood Pressure 140/64 Pulse Oximetry 98 MDM - Back Pain/Injury Lab Data Result diagrams: 10/11/20 12:25 10/11/20 12:25 Labs: Lab Results 10/11/20 10/11/20 Range/Units 12:25 12:25 WBC 6.8 (4.5-11.0) X10^3/uL RBC 4.28 L (4.5-5.9) X10^6/uL Hgb 12.9 L (13.5-17.5) g/dL Hct 38.5 L (41-53) % MCV 90.0 (80-100) fL MCH 30.2 (26-34) PG MCHC 33.6 (30-36) % RDW 13.6 (11.6-14.8) % Plt Count 222 (150-400) X10^3/uL Neut % (Auto) 61.1 (50-75) % Lymph % (Auto) 24.7 L (25-40) % Foard % (Auto) 6.8 (3-14) % Eos % (Auto) 6.8 H (2-4) % Baso % (Auto) 0.6 (0-2) % Neut # (Auto) 4100 (4147-4989) /uL Lymph # (Auto) 1700 (3144-0044) /uL Foard # (Auto) 500 (0-900) /uL Eos # (Auto) 500 H (0-450) /uL Baso # (Auto) 0 (0-100) /uL Sodium 134 L (137-145) mmol/L Potassium 4.5 (3.4-5.1) mmol/L Chloride 100 (98-107) mmol/L Carbon Dioxide 27 (22-32) mmol/L BUN 24 H (9-20) mg/dL Creatinine 1.05 (0.66-1.25) mg/dL Estimated GFR > 60.0 (>60) mL/min BUN/Creatinine Ratio 22.9 H (6-22) Glucose 202 H (80-110) mg/dL Calcium 9.2 (8.4-10.2) mg/dL Imaging Data Lumbar MRI: Radiologist's Impression: 33 DO Cayden Rivera Patient Imaging - Odell Yun 80 M 1940 ACTIVITY DATE EXAM STATUS AUTHOR 10/11/20 11:06 Signed Jory Campos [address] [address] Resonance ReportSigned Patient: Odell Yun EMR#: [id number]: 1940cct:[id number]/Sex: 80 / MDate of Service: 10/11/20Loc: EDAccession Number: [id number] Procedure: MR lumbar spine wo con Ordering Provider: Travis Rodríguez D.O. PROCEDURE: MR LUMBAR SPINE WO CON INDICATIONS: severe pain, worsening, trouble with controlling bladder TECHNIQUE: Noncontrast sagittal T1 spin echo and T2 fast echo, sagittal STIR, axial T1 and T2 fast spin echo through the lumbar spine. In cases with scoliosis, additional coronal T2 fast spin echo may be performed. COMPARISON: [facility], MR, L-SPINE W&WO CONTRAST, 08/19/2013, 11:04. [facility], MR, L-SPINE WITHOUT CONTRAST, 12/27/2012, 8:48. [facility], CR, XR LUMBAR SPINE 2-3V, 10/07/2020, 12:13. FINDINGS: Image quality: Excellent. Alignment and Curvature: There is grade 1 anterolisthesis of L5 on S1, unchanged. Bone Marrow: Degenerative endplate signal changes are present. Marrow signal is otherwise normal. No acute vertebral body compression fractures. Spinal Cord: Conus medullaris terminates at the L1 level. Visualized cord demonstrates normal signal and size. Paraspinous Soft Tissues: No paravertebral masses. T12-L1: Normal appearance. L1-L2: Normal appearance. L2-L3: Preserved disc height. Mild disc desiccation. No central canal or foraminal stenosis. No definitive nerve root impingement. L3-L4: Preserved disc height. Mild disc desiccation. There is diffuse posterior left lateral disc bulge and right posterior lateral disc protrusion. Mild bilateral facet arthropathy and hypertrophy of ligamentum flavum. The central canal mildly narr owed. There is moderate to severe bilateral foraminal stenosis. Suspect right nerve root impingement. L4-L5: Discectomy, laminectomy and posterior fusion. Bilateral moderate facet arthropathy. No central canal stenosis. Moderate bilateral foraminal stenosis. L5-S1: Severe loss of disc height and disc desiccation. There is posterior disc bulge and disc protrusion with broad disc osteophyte complex. Mild bilateral facet arthropathy. Severe left and mild right foraminal stenosis. Possible left nerve root impingement. IMPRESSION: 1. There are degenerative and postsurgical changes in lumbar spine as described. 2. Mild central canal stenosis at L3-L4. 3. Multilevel foraminal stenosis as described. 4. Suspect nerve root impingement at L3-L4, L4-L5 and L5-S1. Dictated by: Julien Campos M.D. on 10/11/2020 at 11:56 Approved by: Julien Campos M.D. on 10/11/2020 at 12:38 Discharge Plan Departure Patient Disposition: Home Clinical Impression: Lumbar nerve root impingement Lumbar canal stenosis Qualifiers: Neurogenic claudication status: without neurogenic claudication Qualified Code(s): M48.061 - Spinal stenosis, lumbar region without neurogenic claudication Activity Restrictions/Additional Instructions: *You have been diagnosed with [lumbar pain due to central canal stenosis and nerve root impingement] *What to do: *Take medications as directed: [facility] *Follow up with your primary care provider in 2-3 days, call for an appointment. Let them know you were seen in the Emergency Department and that we ask that you be seen in follow up *Return to ER if you should have any new, worsening or concerning symptoms, such as [fever > 101F, lower extremity weakness, or other bothersome symptoms ] Prescriptions: New cyclobenzaprine 10 mg tablet 10 mg PO TID PRN (Reason: muscle spasm) Qty: 14 RF: 0 gabapentin 300 mg capsule 300 mg PO BEDTIME Qty: 14 RF: 0 oxycodone 5 mg tablet 5 mg PO Q4-6H PRN (Reason: pain) Qty: 10 RF: 0 No Action (DME) blood sugar diagnostic [Blood Glucose Test] Strip See Rx Instructions .ROUTE .MEDSUPPLY Qty: 400 RF: 3 metoprolol tartrate 50 mg tablet 50 mg PO BID Qty: 180 RF: 3 metformin [Glucophage] 1,000 mg tablet 1,000 mg PO BIDCC Qty: 180 RF: 3 sildenafil 100 mg tablet 50 mg PO DAILY PRN (Reason: sexual activity) Qty: 10 RF: 1 warfarin 5 mg tablet 5 mg PO HS Qty: 90 RF: 3 simvastatin 20 mg tablet 20 mg PO QPM Qty: 90 RF: 1 [Diabetic Shoes] 1 dev miscellaneous DIRECTED RF: 0 timolol 0.5 % Drops 1 drp ophthalmic (eye) BID RF: 0 cyclobenzaprine 10 mg tablet 10 mg PO TID PRN (Reason: muscle spasm) Qty: 20 RF: 0 hydrocodone-acetaminophen [[place]] 5-325 mg tablet 1 tab PO Q4-6H PRN (Reason: pain) Qty: 10 RF: 0 lidocaine 5 % adhesive patch,medicated 1 patch topical DAILY PRN (Reason: pain) Qty: 15 RF: 0 glipizide 10 mg tablet 10 mg PO BID RF: 0 spironolactone 25 mg tablet 25 mg PO QPM RF: 0 levothyroxine [Synthroid] 50 mcg tablet 50 mcg PO QAM RF: 0 doxazosin 4 mg tablet 4 mg PO QPM RF: 0 lisinopril 2.5 mg tablet 2.5 mg PO QAM RF: 0 Referrals: Joel Alas MD [Primary Care Provider] - Mu Slade MD [Physician] -
[2020-10-11 11:05] VITALS: BP 140/64; PULSE 61; RESP 18; TEMP 36.7; O2SAT 98
--- NOTE | 2020-10-11 11:06 | DI.MRI.S_ITS ---
PROCEDURE: MR LUMBAR SPINE WO CON INDICATIONS: severe pain, worsening, trouble with controlling bladder TECHNIQUE: Noncontrast sagittal T1 spin echo and T2 fast echo, sagittal STIR, axial T1 and T2 fast spin echo through the lumbar spine. In cases with scoliosis, additional coronal T2 fast spin echo may be performed. COMPARISON: [facility], MR, L-SPINE W&WO CONTRAST, 08/19/2013, 11:04. [facility], MR, L-SPINE WITHOUT CONTRAST, 12/27/2012, 8:48. [facility], CR, XR LUMBAR SPINE 2-3V, 10/07/2020, 12:13. FINDINGS: Image quality: Excellent. Alignment and Curvature: There is grade 1 anterolisthesis of L5 on S1, unchanged. Bone Marrow: Degenerative endplate signal changes are present. Marrow signal is otherwise normal. No acute vertebral body compression fractures. Spinal Cord: Conus medullaris terminates at the L1 level. Visualized cord demonstrates normal signal and size. Paraspinous Soft Tissues: No paravertebral masses. T12-L1: Normal appearance. L1-L2: Normal appearance. L2-L3: Preserved disc height. Mild disc desiccation. No central canal or foraminal stenosis. No definitive nerve root impingement. L3-L4: Preserved disc height. Mild disc desiccation. There is diffuse posterior left lateral disc bulge and right posterior lateral disc protrusion. Mild bilateral facet arthropathy and hypertrophy of ligamentum flavum. The central canal mildly narrowed. There is moderate to severe bilateral foraminal stenosis. Suspect right nerve root impingement. L4-L5: Discectomy, laminectomy and posterior fusion. Bilateral moderate facet arthropathy. No central canal stenosis. Moderate bilateral foraminal stenosis. L5-S1: Severe loss of disc height and disc desiccation. There is posterior disc bulge and disc protrusion with broad disc osteophyte complex. Mild bilateral facet arthropathy. Severe left and mild right foraminal stenosis. Possible left nerve root impingement. IMPRESSION: 1. There are degenerative and postsurgical changes in lumbar spine as described. 2. Mild central canal stenosis at L3-L4. 3. Multilevel foraminal stenosis as described. 4. Suspect nerve root impingement at L3-L4, L4-L5 and L5-S1. Dictated by: Julien Campos M.D. on 10/11/2020 at 11:56 Approved by: Julien Campos M.D. on 10/11/2020 at 12:38
[2020-10-11 12:37] LABS: Add Manual Diff / Slide Review NO; Basophils Absolute Auto 0 /uL (0-100); Basophils Percent Auto 0.6 % (0-2); Eosinophils Absolute Auto 500 /uL (0-450); Eosinophils Percent Auto 6.8 % (2-4); Hematocrit 38.5 % (41-53); Hemoglobin 12.9 g/dL (13.5-17.5); Lymphocytes Absolute Auto 1700 /uL (1100-4500); Lymphocytes Percent Auto 24.7 % (25-40); Mean Corpuscular HGB Conc 33.6 % (30-36); Mean Corpuscular Hemoglobin 30.2 PG (26-34); Monocytes Absolute Auto 500 /uL (0-900); Monocytes Percent Auto 6.8 % (3-14); Neutrophils Absolute Auto 4100 /uL (1500-7000); Neutrophils Percent Auto 61.1 % (50-75); Platelet Count 222 X10^3/uL (150-400); Red Blood Cell Count 4.28 X10^6/uL (4.5-5.9); Red Cell Distribution Width 13.6 % (11.6-14.8); White Blood Cell Count 6.8 X10^3/uL (4.5-11.0)
[2020-10-11 12:50] LABS: BUN Creatinine Ratio 22.9 (6-22); Blood Urea Nitrogen 24 mg/dL (9-20); Calcium 9.2 mg/dL (8.4-10.2); Carbon Dioxide 27 mmol/L (22-32); Chloride 100 mmol/L (98-107); Estimated Glomerular Filt Rate > 60.0 mL/min (>60); Glucose 202 mg/dL (80-110); HEMOLYSIS < 15 (0-50); Potassium 4.5 mmol/L (3.4-5.1); Sodium 134 mmol/L (137-145)
[2020-10-11 13:36] VITALS: BP 133/78; PULSE 80; RESP 15; O2SAT 99
[2020-10-11 13:49] LABS: INR 2.5 (0.9-1.3); Prothrombin Time 29.2 SECONDS (10.1-12.7)
== END 2020-10-11 13:37 | disposition home or self-care (01) ==
PROVIDERS: Emergency Provider Emergency Medicine; PCP Family Medicine
DX: M54.16 Radiculopathy, lumbar region (principal); M48.061 Spinal stenosis, lumbar region without neurogenic claudication; E11.9 Type 2 diabetes mellitus without complications; E78.5 Hyperlipidemia, unspecified; I10 Essential (primary) hypertension
CPT/HCPCS: 36415; 72148; 80048; 85025; 85610; 99283; 99284

== ENCOUNTER → 2021-03-03 12:25 | Outpatient (CLI) | payer MEDICARE, OTHER, SELFPAY ==
[2021-03-03 14:46] LABS: Hemoglobin A1C% w Est Avg Glu 8.3 % (4.0-6.0)
[2021-03-03 14:51] LABS: BUN Creatinine Ratio 18.3 (6-22); Blood Urea Nitrogen 24 mg/dL (9-20); Calcium 9.5 mg/dL (8.4-10.2); Carbon Dioxide 24 mmol/L (22-32); Chloride 106 mmol/L (98-107); Estimated Glomerular Filt Rate 52.4 mL/min (>60); Glucose 179 mg/dL (80-110); HEMOLYSIS < 15 (0-50); Lipase 45 U/L (23-300); Sodium 138 mmol/L (137-145)
[2021-03-03 15:05] LABS: Potassium 5.4 mmol/L (3.4-5.1)
== END ==
PROVIDERS: PCP Family Medicine; Referring Provider Family Medicine; Visit Provider Family Medicine
DX: E03.9 Hypothyroidism, unspecified (principal); E11.9 Type 2 diabetes mellitus without complications; I10 Essential (primary) hypertension; I48.92 Unspecified atrial flutter
CPT/HCPCS: 36415; 80048; 83036; 83690; 84443

== ENCOUNTER → 2021-06-24 09:54 | Outpatient (CLI) | payer MEDICARE, OTHER, SELFPAY ==
[2021-06-24 10:53] LABS: Hemoglobin A1C% w Est Avg Glu 7.5 % (4.0-6.0)
[2021-06-24 11:19] LABS: Alanine Aminotransferase 28 IU/L (<50); Albumin 4.3 g/dL (3.5-5.0); Albumin Globulin Ratio 1.7 (1.0-2.8); Alkaline Phosphatase 28 U/L (38-126); Aspartate Aminotransferase 25 IU/L (17-59); BUN Creatinine Ratio 23.1 (6-22); Bilirubin Total 0.6 mg/dL (0.2-1.3); Blood Urea Nitrogen 36 mg/dL (9-20); Calcium 9.7 mg/dL (8.4-10.2); Carbon Dioxide 23 mmol/L (22-32); Chloride 108 mmol/L (98-107); Cholesterol 155 mg/dL (140-199); Estimated Glomerular Filt Rate 42.8 mL/min (>60); Globulin 2.6 g/dL (1.7-4.1); Glucose 86 mg/dL (80-110); HDL Cholesterol 47 mg/dL (40-60); HEMOLYSIS < 15 (0-50); LDL Cholesterol Calculated 76 mg/dL (<100); Sodium 139 mmol/L (137-145); Total Protein 6.9 g/dL (6.3-8.2); Triglycerides 161 mg/dL (35-150); Uric Acid 8.8 mg/dL (3.5-8.5)
[2021-06-24 11:20] LABS: Potassium 5.6 mmol/L (3.4-5.1)
== END ==
PROVIDERS: PCP Family Medicine; Referring Provider Physician Assistant; Visit Provider Physician Assistant
DX: E11.65 Type 2 diabetes mellitus with hyperglycemia (principal); E78.5 Hyperlipidemia, unspecified; I10 Essential (primary) hypertension; I48.3 Typical atrial flutter; M10.9 Gout, unspecified; R07.9 Chest pain, unspecified
CPT/HCPCS: 36415; 80053; 80061; 83036; 84550

== ENCOUNTER → 2021-06-30 10:41 | Outpatient (CLI) | payer MEDICARE, OTHER, SELFPAY ==
--- NOTE | 2021-06-30 10:42 | DI.US.S_ITS ---
PROCEDURE: US ABDOMEN COMPLETE INDICATIONS: Abdominal fullness - generalized TECHNIQUE: Real-time scanning was performed of the abdominal and retroperitoneal organs, with image documentation. COMPARISON: None. FINDINGS: Liver: The liver demonstrates normal size. The liver demonstrates generalized moderately increased echogenicity. This decreases ultrasound sensitivity for detection of hepatic masses. Gallbladder: No findings of gallstones or sludge are seen. The gallbladder wall is not thickened, measuring 3 mm or less. No specific pericholecystic fluid is seen. The sonographic Jack sign is negative. Biliary ducts: Intrahepatic bile ducts are non-dilated. Extrahepatic bile duct caliber measures 8 mm. Normal is 6-7 mm or less in diameter, or 10 mm or less post-cholecystectomy. Pancreas: The pancreas is not well seen. Spleen: Spleen is normal in size and homogeneous in echotexture. Kidneys: Kidneys are normal in size and echotexture. Right kidney measures 11.9 cm long; left kidney measures 11.8 cm long. No hydronephrosis or nephrolithiasis. No solid masses. On the left, there is a cortical cyst seen involving the mid kidney that measures up to 1.4 cm. Aorta: Visualized aorta is normal in caliber at less than 3 cm. Iliacs: Proximal common iliac arteries are normal in caliber at less than 2.5 cm. IVC: Intrahepatic inferior vena cava is patent. Miscellaneous: No free abdominal fluid. IMPRESSION: No imaging explanation is found for this patient's presenting symptoms. The liver demonstrates increased echogenicity. This finding is nonspecific, yet it is most commonly attributed to fatty infiltration. The gallbladder demonstrates a normal sonographic appearance. No biliary dilatation is seen. Incidental note is made of: 1.4 cm simple appearing left mid kidney cyst Dictated by: Bill Sanchez M.D. on 06/30/2021 at 10:53 Approved by: Bill Sanchez M.D. on 06/30/2021 at 10:54
--- NOTE | 2021-06-30 10:42 | DI.RAD.S_ITS ---
PROCEDURE: FL BARIUM SWALLOW INDICATIONS: Mid chest pain resolved w/eating; abdominal fullness COMPARISON: [facility], , ABDOMEN COMPLETE, 06/30/2021, 10:56. FINDINGS: Function: There is normal esophageal peristalsis. No elicited gastroesophageal reflux. There is normal transit of a calibrated barium tablet through the esophagus into the stomach. Morphology: Air-contrast images demonstrate normal mucosal morphology. Single contrast views show no esophageal strictures, extrinsic mass effects, or diverticula. Limited images of the stomach demonstrate normal appearance. IMPRESSION: Normal examination. Dictated by: Julien Campos M.D. on 07/01/2021 at 11:38 Approved by: Julien Campos M.D. on 07/01/2021 at 11:39
== END ==
PROVIDERS: PCP Family Medicine; Referring Provider Physician Assistant; Visit Provider Physician Assistant
DX: R07.9 Chest pain, unspecified (principal); R19.8 Other specified symptoms and signs involving the digestive system and abdomen; N28.1 Cyst of kidney, acquired
CPT/HCPCS: 74221; 76700

== ENCOUNTER → 2021-07-01 12:00 | Outpatient (CLI) | payer MEDICARE, OTHER, SELFPAY ==
[2021-07-01 15:15] LABS: BUN Creatinine Ratio 23.5 (6-22); Blood Urea Nitrogen 27 mg/dL (9-20); Calcium 9.7 mg/dL (8.4-10.2); Carbon Dioxide 26 mmol/L (22-32); Chloride 104 mmol/L (98-107); Estimated Glomerular Filt Rate > 60.0 mL/min (>60); Glucose 165 mg/dL (80-110); HEMOLYSIS < 15 (0-50); Potassium 5.2 mmol/L (3.4-5.1); Sodium 139 mmol/L (137-145)
== END ==
PROVIDERS: PCP Family Medicine; Referring Provider Internal Medicine Cardiovascular Disease; Visit Provider Internal Medicine Cardiovascular Disease
DX: I10 Essential (primary) hypertension (principal)
CPT/HCPCS: 36415; 80048

== ENCOUNTER → 2021-07-19 11:08 | Outpatient (CLI) | payer MEDICARE, OTHER, SELFPAY ==
[2021-07-19 12:30] LABS: BUN Creatinine Ratio 16.5 (6-22); Blood Urea Nitrogen 21 mg/dL (9-20); Calcium 9.4 mg/dL (8.4-10.2); Carbon Dioxide 31 mmol/L (22-32); Chloride 100 mmol/L (98-107); Estimated Glomerular Filt Rate 54.2 mL/min (>60); Glucose 248 mg/dL (80-110); HEMOLYSIS < 15 (0-50); Potassium 4.9 mmol/L (3.4-5.1); Sodium 138 mmol/L (137-145)
[2021-07-19 13:28] LABS: Hemoglobin A1C% w Est Avg Glu 7.5 % (4.0-6.0)
== END ==
PROVIDERS: Physician Assistant; PCP Family Medicine; Referring Provider Nurse Practitioner Acute Care; Visit Provider Nurse Practitioner Acute Care
DX: E11.65 Type 2 diabetes mellitus with hyperglycemia (principal); E87.5 Hyperkalemia; I10 Essential (primary) hypertension
CPT/HCPCS: 36415; 80048; 83036

== ENCOUNTER → 2021-08-23 10:34 | Outpatient (CLI) | payer MEDICARE, OTHER, SELFPAY ==
[2021-08-23 11:19] LABS: Hemoglobin A1C% w Est Avg Glu 8.4 % (4.0-6.0)
[2021-08-23 11:31] LABS: Blood Urea Nitrogen 18 mg/dL (9-20); Carbon Dioxide 26 mmol/L (22-32); Chloride 104 mmol/L (98-107); Estimated Glomerular Filt Rate > 60.0 mL/min (>60); Glucose 260 mg/dL (80-110); HEMOLYSIS < 15 (0-50); Potassium 4.7 mmol/L (3.4-5.1); Sodium 137 mmol/L (137-145); Uric Acid 7.7 mg/dL (3.5-8.5)
[2021-08-23 12:20] LABS: Vitamin B12 595 pg/mL (239-931)
== END ==
PROVIDERS: PCP Family Medicine; Referring Provider Physician Assistant; Visit Provider Physician Assistant
DX: E11.65 Type 2 diabetes mellitus with hyperglycemia (principal); I10 Essential (primary) hypertension; M10.9 Gout, unspecified; G62.9 Polyneuropathy, unspecified; E53.8 Deficiency of other specified B group vitamins
CPT/HCPCS: 36415; 80048; 82607; 83036; 84550

== ENCOUNTER → 2021-09-15 17:20 | Outpatient (CLI) | payer MEDICARE, OTHER, SELFPAY ==
[2021-09-15 18:43] LABS: COVID19 -Nasal RAPID POSITIVE (Negative)
== END ==
PROVIDERS: PCP Family Medicine; Referring Provider Physician Assistant; Visit Provider Physician Assistant
DX: U07.1 COVID-19 (principal); Z20.822 Contact with and (suspected) exposure to COVID-19
CPT/HCPCS: 87635

== ENCOUNTER 2021-09-19 14:24 | Emergency (ER) | payer MEDICARE, OTHER, SELFPAY ==
[2021-09-19] VITALS (9 sets, daily range): BP systolic 127–164; BP diastolic 64–95; PULSE 50–57; RESP 14–23; TEMP 36.7; O2SAT 96–98
--- NOTE | 2021-09-19 14:38 | DI.RAD.S_ITS ---
PROCEDURE: XR CHEST 1V INDICATIONS: chest pain TECHNIQUE: One view of the chest was acquired. COMPARISON: [facility], CR, XR CHEST 2V, 12/30/2018, 10:58. FINDINGS: Surgical changes and devices: None. Lungs and pleura: Lungs are clear. No pleural effusions or pneumothorax. Mediastinum: Mediastinal contours appear normal. Heart size is normal. Bones and chest wall: No suspicious bony lesions. Overlying soft tissues appear unremarkable. IMPRESSION: No acute cardiopulmonary disease. Dictated by: Julien Campos M.D. on 09/19/2021 at 15:54 Approved by: Julien Campos M.D. on 09/19/2021 at 15:54
[2021-09-19 15:16] LABS: INR 3.3 (0.9-1.3); Prothrombin Time 38.5 SECONDS (10.1-12.7)
[2021-09-19 15:17] LABS: Add Manual Diff / Slide Review NO; Basophils Absolute Auto 100 /uL (0-100); Eosinophils Absolute Auto 300 /uL (0-450); Eosinophils Percent Auto 3.7 % (2-4); Hematocrit 38.2 % (41-53); Hemoglobin 12.7 g/dL (13.5-17.5); Lymphocytes Absolute Auto 2400 /uL (1100-4500); Lymphocytes Percent Auto 29.5 % (25-40); Mean Corpuscular HGB Conc 33.2 % (30-36); Mean Corpuscular Hemoglobin 29.6 PG (26-34); Mean Corpuscular Volume 89.2 fL (80-100); Monocytes Absolute Auto 500 /uL (0-900); Monocytes Percent Auto 6.6 % (3-14); Neutrophils Absolute Auto 4700 /uL (1500-7000); Neutrophils Percent Auto 59.2 % (50-75); Platelet Count 293 X10^3/uL (150-400); Red Blood Cell Count 4.29 X10^6/uL (4.5-5.9)
--- NOTE | 2021-09-19 15:34 | ED_ITS ---
HPI - Chest Pain General Chief Complaint: Chest Pain Stated Complaint: Severe Rt Sided Chest Pain/COVID+ Time Seen by Provider: 09/19/21 14:55 Source: patient Mode of arrival: Ambulatory History of Present Illness HPI narrative: Patient is a 81-year-old male had a recent infection with COVID presents today with right-sided chest discomfort for the last 4 days. He says it is worse when he reaches and grabs for things. He does not notice any worsening pain with breathing or exertion. It is not pinpoint or reproducible. He says he thinks he had COVID August 29 through the as he slept a lot however he did not take a test in till last week. He overall is feeling significantly better. He denies fever chills body aches and other symptoms. No productive cough. Related Data Home Medications Medication Instructions Recorded Confirmed timolol 0.5 % eye drops 1 drp OPHTHALMIC (EYE) BID 02/11/18 08/23/21 levothyroxine 50 mcg tablet 50 mcg PO QAM 10/11/20 08/23/21 (Synthroid) Previous Rx's Medication Instructions Recorded blood sugar diagnostic (Blood #400 each 12/15/19 Glucose Test) lidocaine 5 % topical patch 1 patch TOPICAL DAILY PRN #15 ea 10/07/20 ciclopirox 8 % topical solution 1 applic TOPICAL BEDTIME 28 Days 01/27/21 #6.6 ml metformin 1,000 mg tablet See Rx Instructions .ROUTE 03/22/21 .COMPLEX #180 tab metoprolol tartrate 50 mg tablet 50 mg PO BID #180 tab 03/29/21 sildenafil 100 mg tablet 50 mg PO DAILY PRN #10 tab 05/11/21 warfarin 5 mg tablet See Rx Instructions .ROUTE 05/12/21 .COMPLEX #90 tab spironolactone 25 mg tablet See Rx Instructions .ROUTE 08/06/21 .COMPLEX #90 tab doxazosin 4 mg tablet 4 mg PO QPM #90 tab 08/24/21 benzonatate 200 mg capsule 200 mg PO QID PRN #30 cap 09/12/21 glipizide 5 mg tablet, extended 5 mg PO DAILY #90 tab 09/12/21 release 24 hr simvastatin 20 mg tablet 20 mg PO QPM #90 tab 09/12/21 Allergies Allergy/AdvReac Type Severity Reaction Status Date / Time oyster extract Allergy Mild Vomiting Verified 06/22/21 09:30 Review of Systems Review of Systems Narrative: GENERAL: Denies chills, fatigue, malaise, fever, sweats, travel HEENT: Denies sinus pain, ear pain, sore throat, difficulty swallowing, neck pain RESPIRATORY: Denies dyspnea, cough, wheezing, hemoptysis, sputum. CARDIOVASCULAR: See HPI GASTROINTESTINAL: Denies nausea, vomiting, abdominal pain, diarrhea, constipation, melena. : Denies dysuria, frequency, incontinence, hematuria, urinary retention, flank pain. MUSCULOSKELETAL: Denies weakness, joint pain, or bony pain SKIN: No rash, no erythema, no pruritus NEUROLOGIC: Denies weakness, dizziness, headache, numbness, change in speech, confusion PSYCHIATRIC: No concerning psychosocial issues. 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) Diabetes mellitus Hyperlipidemia Hypertension Lumbar spine pain Other acute pulmonary embolism without acute cor pulmonale (11/08/16) Polymyalgia rheumatica (05/16/17) Postherpetic neuralgia (10/27/16) Surgical History Status post laminectomy (2011) Status post transurethral resection of prostate Family History Father CAD (coronary artery disease) Social History marital status: Smoking Status: Former smoker alcohol intake: current substance use type: does not use Smoking Status: Former smoker alcohol intake frequency: a few times a month Substance Use Type: does not use Exam Initial Vital Signs Initial Vital Signs: Vital Signs Temperature 98.1 F 09/19/21 14:35 Pulse Rate 55 L 09/19/21 14:35 Respiratory Rate 22 09/19/21 14:35 Blood Pressure 164/70 H 09/19/21 14:35 Pulse Oximetry 96 09/19/21 14:35 GENERAL: Well-appearing 81-year-old male and in no acute distress. HEENT: Head atraumatic,EOMI, pupils reactive, face symmetric, moist mucous membranes CARDIOVASCULAR: Regular rate and rhythm without murmurs, rubs or gallops. Pain is not reproducible with palpation RESPIRATORY: Breath sounds equal bilaterally, no wheezes rales or rhonchi. ABDOMEN: Soft, nontender. Normoactive bowel sounds all 4 quadrants. No guarding or rebound. EXTREMITIES: Normal range of motion, no clubbing or edema. Neurovascularly intact NEUROLOGICAL: Alert and oriented x4.Normal gait and speech. SKIN: Warm, dry, no laceration, no petechiae, no rashes or lesions. Course Orders Ordered: ED Orders 09/19/21 14:38 XR chest 1V Stat EKG-12 Lead Stat 09/19/21 14:50 Complete Blood Count AUTO DIFF Stat Prothrombin Time INR Stat 09/19/21 15:45 Comprehensive Metabolic Panel Stat Lipase Stat Magnesium Stat Troponin & CK Cardiac Panel Stat Vital Signs Vital signs: Vital Signs - 8 hr 09/19/21 14:35 09/19/21 14:54 09/19/21 15:00 Temperature 98.1 F Pulse Rate 55 L 56 L 57 L Respiratory Rate 22 19 Blood Pressure 164/70 H Pulse Oximetry 96 98 97 09/19/21 15:30 09/19/21 16:00 09/19/21 16:01 Temperature Pulse Rate 53 L 52 L 53 L Respiratory Rate 14 22 19 Blood Pressure 145/68 H 127/95 H Pulse Oximetry 97 97 97 MDM - Chest Pain Lab Data Result diagrams: 09/19/21 14:50 09/19/21 15:45 Labs: Lab Results 09/19/21 09/19/21 09/19/21 Range/Units 14:50 14:50 15:45 WBC 8.0 (4.5-11.0) X10^3/uL RBC 4.29 L (4.5-5.9) X10^6/uL Hgb 12.7 L (13.5-17.5) g/dL Hct 38.2 L (41-53) % MCV 89.2 (80-100) fL MCH 29.6 (26-34) PG MCHC 33.2 (30-36) % RDW 14.0 (11.6-14.8) % Plt Count 293 (150-400) X10^3/uL Neut % (Auto) 59.2 (50-75) % Lymph % (Auto) 29.5 (25-40) % [place] % (Auto) 6.6 (3-14) % Eos % (Auto) 3.7 (2-4) % Baso % (Auto) 1.0 (0-2) % Neut # (Auto) 4700 (1605-4983) /uL Lymph # (Auto) 2400 (7787-0564) /uL [place] # (Auto) 500 (0-900) /uL Eos # (Auto) 300 (0-450) /uL Baso # (Auto) 100 (0-100) /uL PT 38.5 H (10.1-12.7) SECONDS INR 3.3 H (0.9-1.3) Sodium 137 (137-145) mmol/L Potassium 5.0 (3.4-5.1) mmol/L Chloride 105 (98-107) mmol/L Carbon Dioxide 24 (22-32) mmol/L BUN 27 H (9-20) mg/dL Creatinine 1.10 (0.66-1.25) mg/dL Estimated GFR > 60.0 (>60) mL/min BUN/Creatinine Ratio 24.5 H (6-22) Glucose 160 H (80-110) mg/dL Calcium 9.6 (8.4-10.2) mg/dL Magnesium 1.6 (1.6-2.3) mg/dL Total Bilirubin 0.3 (0.2-1.3) mg/dL AST 26 (17-59) IU/L ALT 26 (<50) IU/L Alkaline Phosphatase 36 L (38-126) U/L Total Creatine Kinase 78 (55-170) U/L CK-MB (CK-2) TNP CK-MB (CK-2) Rel Index TNP Troponin I < 0.012 (0.01-0.034) ng/mL Total Protein 7.4 (6.3-8.2) g/dL Albumin 4.2 (3.5-5.0) g/dL Globulin 3.2 (1.7-4.1) g/dL Albumin/Globulin Ratio 1.3 (1.0-2.8) Lipase 46 (23-300) U/L Imaging Data Chest x-ray: Radiologist's Impression: PROCEDURE:? XR CHEST 1V ? INDICATIONS:? chest pain ? TECHNIQUE:? One view of the chest was acquired.? ? COMPARISON:? [facility], CR, XR CHEST 2V, 12/30/2018, 10:58. ? FINDINGS:? ? Surgical changes and devices:? None.? ? Lungs and pleura:? Lungs are clear.? No pleural effusions or pneumothorax.? ? Mediastinum:? Mediastinal contours appear normal.? Heart size is normal.? ? Bones and chest wall:? No suspicious bony lesions.? Overlying soft tissues appear unremarkable.? ? IMPRESSION:? No acute cardiopulmonary disease. ? ? Dictated by: Julien Campos M.D. on 09/19/2021 at 15:54 ? ? ECG Data Interpretation: Normal sinus rhythm rate 55 IN interval 202 QRS [address] changes no T- wave inversion MDM Narrative Medical decision making narrative: Patient has been having right-sided chest discomfort worse with movement for last 4 days. Blood work and EKG are overall reassuring. Symptoms are most consistent with a musculoskeletal is she. With his recent bout of COVID he said he was coughing quite of bit probable costochondritis strain. Unlikely to be PE although it was considered. Discharge Plan Departure Patient Disposition: Home Clinical Impression: Atypical chest pain Activity Restrictions/Additional Instructions: *You have been diagnosed with atypical chest pain *What to do: At this time blood work and chest x-ray are overall reassuring. Pain may be related to recent COVID infection *Continue to take medications as directed *Follow up with your primary care provider in 2-3 days or call [phone] *Return to ER if you should have increasing pain shortness of breath palpitations or any new, worsening or concerning symptoms Prescriptions: No Action ciclopirox 8 % solution 1 applic topical BEDTIME 28 Days Qty: 6.6 1RF (DME) blood sugar diagnostic [Blood Glucose Test] Strip See Rx Instructions .ROUTE .MEDSUPPLY Qty: 400 3RF Rx Instructions: Use to check blood sugar 1-2 times daily as directed by physician metformin 1,000 mg tablet See Rx Instructions .ROUTE .COMPLEX Qty: 180 3RF Dose Instruction: TAKE 1 TABLET BY MOUTH TWICE DAILY DUE FOR A MEDICATION CHECK APPOINTMENT Rx Instructions: TAKE 1 TABLET BY MOUTH TWICE DAILY DUE FOR A MEDICATION CHECK APPOINTMENT metoprolol tartrate 50 mg tablet 50 mg PO BID Qty: 180 3RF sildenafil 100 mg tablet 50 mg PO DAILY PRN (Reason: sexual activity) Qty: 10 1RF Rx Instructions: administer 30 minutes to 4 hours before activity warfarin 5 mg tablet See Rx Instructions .ROUTE .COMPLEX Qty: 90 3RF Dose Instruction: TAKE 1 TABLET BY MOUTH ONCE DAILY IN THE EVENING OR DIRECTED Rx Instructions: TAKE 1 TABLET BY MOUTH ONCE DAILY IN THE EVENING OR DIRECTED spironolactone 25 mg tablet See Rx Instructions .ROUTE .COMPLEX Qty: 90 3RF Dose Instruction: TAKE ONE TABLET BY MOUTH ONCE DAILY Rx Instructions: TAKE ONE TABLET BY MOUTH ONCE DAILY doxazosin 4 mg tablet 4 mg PO QPM Qty: 90 1RF glipizide 5 mg tablet extended release 24hr 5 mg PO DAILY Qty: 90 1RF simvastatin 20 mg tablet 20 mg PO QPM Qty: 90 1RF benzonatate 200 mg capsule 200 mg PO QID PRN (Reason: cough) Qty: 30 0RF timolol 0.5 % Drops 1 drp ophthalmic (eye) BID 0RF lidocaine 5 % adhesive patch,medicated 1 patch topical DAILY PRN (Reason: pain) Qty: 15 0RF Rx Instructions: leave on most painful area for up to 12 hrs levothyroxine [Synthroid] 50 mcg tablet 50 mcg PO QAM 0RF Rx Instructions: take one tab by mouth daily in the am. Referrals: Joel Alas MD [Primary Care Provider] -
[2021-09-19 16:28] LABS: Alanine Aminotransferase 26 IU/L (<50); Albumin 4.2 g/dL (3.5-5.0); Albumin Globulin Ratio 1.3 (1.0-2.8); Alkaline Phosphatase 36 U/L (38-126); Aspartate Aminotransferase 26 IU/L (17-59); BUN Creatinine Ratio 24.5 (6-22); Bilirubin Total 0.3 mg/dL (0.2-1.3); Blood Urea Nitrogen 27 mg/dL (9-20); Calcium 9.6 mg/dL (8.4-10.2); Carbon Dioxide 24 mmol/L (22-32); Chloride 105 mmol/L (98-107); Creatine Kinase 78 U/L (55-170); Estimated Glomerular Filt Rate > 60.0 mL/min (>60); Globulin 3.2 g/dL (1.7-4.1); Glucose 160 mg/dL (80-110); HEMOLYSIS < 15 (0-50); Lipase 46 U/L (23-300); Magnesium 1.6 mg/dL (1.6-2.3); Sodium 137 mmol/L (137-145); Total Protein 7.4 g/dL (6.3-8.2)
[2021-09-19 16:38] LABS: Troponin I < 0.012 ng/mL (0.01-0.034)
== END 2021-09-19 17:08 | disposition home or self-care (01) ==
PROVIDERS: Emergency Provider Emergency Medicine; PCP Family Medicine
DX: R07.89 Other chest pain (principal); Z86.16 Personal history of COVID-19; Z87.891 Personal history of nicotine dependence
CPT/HCPCS: 36415; 71045; 80053; 82550; 83690; 83735; 84484; 85025; 85610; 93005; 99284

== ENCOUNTER → 2021-10-06 11:14 | Outpatient (CLI) | payer MEDICARE, OTHER, SELFPAY ==
[2021-10-06 13:08] LABS: Hemoglobin A1C% w Est Avg Glu 8.1 % (4.0-6.0)
== END ==
PROVIDERS: PCP Family Medicine; Referring Provider Physician Assistant; Visit Provider Physician Assistant
DX: E11.65 Type 2 diabetes mellitus with hyperglycemia (principal)
CPT/HCPCS: 36415; 83036

== ENCOUNTER → 2022-01-05 12:03 | Outpatient (CLI) | payer MEDICARE, OTHER, SELFPAY ==
[2022-01-05 13:12] LABS: Hemoglobin A1C% w Est Avg Glu 9.5 % (4.0-6.0)
== END ==
PROVIDERS: PCP Family Medicine; Referring Provider Physician Assistant; Visit Provider Physician Assistant
DX: E11.65 Type 2 diabetes mellitus with hyperglycemia (principal)
CPT/HCPCS: 36415; 83036

== ENCOUNTER → 2022-02-15 09:35 | Outpatient (CLI) | payer MEDICARE, OTHER, SELFPAY ==
--- NOTE | 2022-02-21 18:55 | DIAB.MNT ---
Initial Diabetes Medical Nutrition Therapy Assessment Name: Odell Yun Date: 02/15/22 Time: [id number] Dx: Type II Diabetes Provider: Bishop Bain presents for initial visit regarding T2Dm with his , Keely. States he has had Dm for 15 years. Reports feeling unclear on how to change his diet. States he has lost weight recently, but his shirts still feel tight in the abdominal area. Reports a drastic decrease in the last year since d/c of diving, skiing, and boating. Keely feels this is the main barrier to DM mgmnt and wt loss. Endorses issues with LE edema and numbness. H/o CHF. Diet Recall: 8a: coffee with sf sweetener an dmilk, toast with avocado or half muffin 1130a: 2c cheerios with milk and berries or eggs with tomato, cheese and meat or left overs sn: nothing or cheese and crackers 5-6p: salad and non starch veg with 6oz pro with half of potato or 1c rice or pasta 8-9p: 1c ic cream or sf jello with fruit Beverages: 40-48oz crystal light, 4-8 oz oj infrequently, +/- water Anthropometrics: Ht: 67 Wt: 201.5# (reports UBW in 190s#) Physical Activity: treadmill 2-3x per week for 0.5-1 mi Self-Monitoring Blood Glucose: Has SMBG supplies but does not like to poke finger. Checked FBG last week: 180 and 132 mg/dL. States he is unclear on BG goals. 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 Provided appropriate educational handouts. Discussed the following topics: Completed intake assessment. Discussed barriers to care. HgA1c and rationale for goal SMBG and when to check and goals Plate Method, impact of macronutrients on blood sugar Recommended servings for carbohydrates at meals and snacks Role of physical activity and following provider guidelines for safety Created SMART goals for patient self-care and success. Goals: Keep cheerios to 1.5c Add protein to each meal/snack Gym 4 x per week Check fasting and/or 1-2 hr pc Follow-up: MAGGIE LOWRY follow-up in 3-4 weeks Denisse Pack RDN, [facility] Certified Diabetes Care and Real Estate Operations Manager P: [phone] Thank you for this referral
== END ==
PROVIDERS: PCP Family Medicine; Referring Provider Family Medicine; Visit Provider Family Medicine
DX: E11.9 Type 2 diabetes mellitus without complications (principal); Z71.3 Dietary counseling and surveillance; Z79.84 Long term (current) use of oral hypoglycemic drugs
CPT/HCPCS: 97802

== ENCOUNTER → 2022-03-09 16:02 | Outpatient (CLI) | payer MEDICARE, OTHER, SELFPAY ==
--- NOTE | 2022-03-10 16:56 | DIAB.MNTFU ---
Follow-up Diabetes Medical Nutrition Therapy Assessment Name: Odell Yun Date: 03/09/22 Time: 410-510p Dx: Type II Diabetes Jose E presents for follow-up with , Keely. Reports reduced cereal portion this visit. States protein with breakfst cereal cont to be a challenge. Reports hyperglycemia despite moderate to low carb intake. Does have questions about juice intake, though states he has not been consuming juice recently. Endorses concerns about medication costs-- no medication insurance. Historically could not afford Jardiance. Seems likely that hyperglycemia may be due to reduced physical activity and perhaps DM progression. States he feels fatigue and that it is difficult to be active sometimes. This may be in part due to hyperglycemia causing fatigue. Anthropometrics: Ht: 67 Wt: 200# Weight history: 190-200# Physical Activity: treadmill 2-3x per week for 0.5-1 mi, limited gym time Self-Monitoring Blood Glucose: Started checking BG 2-3 x per day since last visit. Most elevated. No dates provided. 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 Provided appropriate educational handouts. Discussed the following topics: Blood sugar review and trends. Progression of DM and management with diet, exercise and medication. Review of affordable meds and upper limit of dosage Plate Method Avoiding juices and sweets Importance of physical activity Impact of central adiposity on Dm resistance Rule of 15 for lows if increase in glipizide causes any hypoglycemia in the future Created SMART goals for patient self-care and success. Goals: Keep cheerios to 1.5c - met Add protein to each meal/snack- in progress Gym 4 x per week- in progress Check fasting and/or 1-2 hr pc- met Try checking 1-2 hours after dinner and after a walk- new Discuss medication titration with PCP- new Follow-up: MAGGIE LOWRY follow-up prn. Don would like to follow-up prn. Did encourage him to call my office with questions or concerns. He agreed. Don would likely benefit from titration of glipizide. Only other option may be affordable insulin (NPH perhaps), given their financial insurance constraints. He is not currently open to injections. Denisse Pack RDN, [facility] Certified Diabetes Care and Archeologist P: [phone] Thank you for this referral
== END ==
PROVIDERS: PCP Family Medicine; Referring Provider Family Medicine; Visit Provider Family Medicine
DX: E11.9 Type 2 diabetes mellitus without complications (principal); Z71.3 Dietary counseling and surveillance; Z79.84 Long term (current) use of oral hypoglycemic drugs
CPT/HCPCS: 97803

== ENCOUNTER → 2022-03-23 09:38 | Outpatient (CLI) | payer MEDICARE, OTHER, SELFPAY ==
[2022-03-23 10:15] LABS: Hemoglobin A1C% w Est Avg Glu 8.6 % (4.0-6.0)
[2022-03-23 10:29] LABS: Alanine Aminotransferase 21 IU/L (<50); Albumin 4.2 g/dL (3.5-5.0); Albumin Globulin Ratio 1.5 (1.0-2.8); Alkaline Phosphatase 32 U/L (38-126); Aspartate Aminotransferase 25 IU/L (17-59); BUN Creatinine Ratio 22.9 (6-22); Bilirubin Total 0.6 mg/dL (0.2-1.3); Blood Urea Nitrogen 24 mg/dL (9-20); Carbon Dioxide 24 mmol/L (22-32); Chloride 102 mmol/L (98-107); Cholesterol 218 mg/dL (140-199); Estimated Glomerular Filt Rate > 60 mL/min (>60); Globulin 2.8 g/dL (1.7-4.1); Glucose 199 mg/dL (80-110); HDL Cholesterol 56 mg/dL (40-60); HEMOLYSIS < 15 (0-50); LDL Cholesterol Calculated 127 mg/dL (<100); Sodium 136 mmol/L (137-145); Triglycerides 174 mg/dL (35-150); Uric Acid 9.3 mg/dL (3.5-8.5)
[2022-03-23 11:03] LABS: TSH w/ Reflex to FT4 2.97 uIU/mL (0.47-4.68)
== END ==
PROVIDERS: PCP Family Medicine; Referring Provider Physician Assistant; Visit Provider Physician Assistant
DX: E11.65 Type 2 diabetes mellitus with hyperglycemia (principal); M10.9 Gout, unspecified; E78.5 Hyperlipidemia, unspecified; I10 Essential (primary) hypertension; E03.9 Hypothyroidism, unspecified
CPT/HCPCS: 36415; 80053; 80061; 83036; 84443; 84550

== ENCOUNTER → 2022-09-22 10:20 | Outpatient (CLI) | payer MEDICARE, OTHER, SELFPAY ==
[2022-09-22 11:41] LABS: Alanine Aminotransferase 21 IU/L (<50); Albumin 4.3 g/dL (3.5-5.0); Albumin Globulin Ratio 1.4 (1.0-2.8); Alkaline Phosphatase 38 U/L (38-126); Aspartate Aminotransferase 23 IU/L (17-59); BUN Creatinine Ratio 23.8 (6-22); Bilirubin Total 0.7 mg/dL (0.2-1.3); Blood Urea Nitrogen 25 mg/dL (9-20); Calcium 9.2 mg/dL (8.4-10.2); Carbon Dioxide 23 mmol/L (22-32); Chloride 102 mmol/L (98-107); Cholesterol 152 mg/dL (140-199); Estimated Glomerular Filt Rate > 60 mL/min (>60); Glucose 152 mg/dL (80-110); HDL Cholesterol 54 mg/dL (40-60); HEMOLYSIS < 15 (0-50); LDL Cholesterol Calculated 72 mg/dL (<100); Potassium 5.1 mmol/L (3.4-5.1); Sodium 137 mmol/L (137-145); Total Protein 7.3 g/dL (6.3-8.2); Triglycerides 128 mg/dL (35-150)
[2022-09-22 12:05] LABS: Creatinine Urine Random 121.3 mg/dL
[2022-09-22 12:10] LABS: Microalbumi Creatinin Ratio Ur 7.4 ug/mg CR (<30); Microalbumin Urine Random 0.9 mg/dL (0-1.6)
[2022-09-23 04:38] LABS: Fructosamine 285 umol/L (0-285)
== END ==
PROVIDERS: PCP Family Medicine; Referring Provider Internal Medicine Endocrinology, Diabetes & Metabolism; Visit Provider Internal Medicine Endocrinology, Diabetes & Metabolism
DX: E11.21 Type 2 diabetes mellitus with diabetic nephropathy (principal)
CPT/HCPCS: 36415; 80053; 80061; 82043; 82570; 82985

== ENCOUNTER 2023-01-10 11:00 | Emergency (ER) | payer MEDICARE, OTHER, SELFPAY ==
[2023-01-10 11:09] VITALS: BP 115/52; PULSE 56; RESP 16; TEMP 36.6; O2SAT 96; BMI 29.0
--- NOTE | 2023-01-10 11:12 | DI.RAD.S_ITS ---
PROCEDURE: XR CHEST 2V INDICATIONS: cough x 2 weeks TECHNIQUE: 2 views of the chest were acquired. COMPARISON: [facility], CR, XR CHEST 1V, 09/19/2021, 14:53. FINDINGS: Surgical changes and devices: None. Lungs and pleura: Lungs are clear. No pleural effusions or pneumothorax. Mediastinum: Mediastinal contours are normal. Heart size is normal. Bones and chest wall: No suspicious bony abnormalities. Soft tissues appear unremarkable. IMPRESSION: No acute cardiopulmonary process. Dictated by: Eduardo Garcia M.D. on 01/10/2023 at 10:41 Approved by: Eduardo Garcia M.D. on 01/10/2023 at 10:41
--- NOTE | 2023-01-10 12:42 | ED.GENADULT ---
HPI - General Adult General Chief complaint: Upper Respiratory Symptoms Stated complaint: body doesn't feel well; cough x1wk; dizzy Time Seen by Provider: 01/10/23 12:12 Source: patient Mode of arrival: Ambulatory History of Present Illness HPI narrative: Patient is an 82-year-old male who is here for evaluation approximately 1 week of a cough and sinus congestion. He states that he just recently developed some irritation to his left eye. He is feeling dizzy. No chest pain or shortness of breath. No skin rashes. No change in bowel habits. No chest pain. He has been trying rlow-[id number]-[id number] cough and cold preparations without any improvement. His is here in the emergency department very similar symptoms. States he generally has body aches. No underlying lung pathology. Related Data Home Medications Medication Instructions Recorded Confirmed timolol 0.5 % eye drops 1 drp ophthalmic (eye) BID 02/11/18 04/28/22 Previous Rx's Medication Instructions Recorded blood sugar diagnostic (Blood #400 ea 12/15/19 Glucose Test strips) warfarin 5 mg tablet See Rx Instructions .Route 03/20/22 .COMPLEX #90 tabs Disabled Parking Permit #1 ea 04/17/22 metoprolol tartrate 50 mg tablet See Rx Instructions .Route 04/18/22 .COMPLEX #180 tabs glipizide 10 mg tablet, extended 10 mg PO DAILY #90 tabs 05/08/22 release 24 hr ciclopirox 8 % topical solution 1 applic topical BEDTIME 4 weeks 05/30/22 #6.6 mL sildenafil 100 mg tablet 50 mg PO DAILY PRN sexual activity 05/30/22 #10 tabs Diabetic shoes and inserts #1 ea 06/15/22 doxazosin 4 mg tablet See Rx Instructions .Route 08/08/22 .COMPLEX #90 tabs atorvastatin 20 mg tablet (Lipitor) 20 mg PO DAILY #90 tabs 08/22/22 spironolactone 25 mg tablet See Rx Instructions .Route 09/12/22 .COMPLEX #90 tabs levothyroxine 50 mcg tablet See Rx Instructions .Route 09/18/22 .COMPLEX #90 tabs metformin 1,000 mg tablet See Rx Instructions .Route 11/13/22 .COMPLEX #180 tabs azithromycin 250 mg tablet See Rx Instructions PO .COMPLEX #6 01/10/23 tabs Allergies Allergy/AdvReac Type Severity Reaction Status Date / Time oyster extract Allergy Mild Vomiting Verified 04/28/22 07:38 Review of Systems Constitutional Constitutional: Reports system reviewed and no additional complaints, except as documented Cardiovascular Cardiovascular: Reports system reviewed and no additional complaints, except as documented Respiratory Respiratory: Reports system reviewed and no additional complaints, except as documented Gastrointestinal Gastrointestinal: Reports system reviewed and no additional complaints, except as documented Integumentary/Breasts Skin/Breast: Reports system reviewed and no additional complaints, except as documented Neurologic Neurologic: Reports system reviewed and no additional complaints, except as documented Hematologic/Lymphatic On Anticoagulants: Yes Patient History Medical History Acute diastolic heart failure (10/27/16) 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) Diabetes mellitus Hyperlipidemia Hypertension Lumbar spine pain Other acute pulmonary embolism without acute cor pulmonale (11/08/16) Polymyalgia rheumatica (05/16/17) Postherpetic neuralgia (10/27/16) Pulmonary emboli Surgical History Status post laminectomy (2011) Status post transurethral resection of prostate Family History Father CAD (coronary artery disease) Social History marital status: Smoking Status: Former smoker alcohol intake: current substance use type: does not use Smoking Status: Former smoker alcohol intake frequency: a few times a month Substance Use Type: does not use Exam Initial Vital Signs Initial Vital Signs: Vital Signs Temperature 98 F 01/10/23 11:09 Pulse Rate 56 L 01/10/23 11:09 Respiratory Rate 16 01/10/23 11:09 Blood Pressure 115/52 L 01/10/23 11:09 Pulse Oximetry 96 01/10/23 11:09 Oxygen Delivery Method Room Air 01/10/23 11:09 Const General: cooperative, comfortable and No ill appearing HENMT Head: normal to inspection and normocephalic Resp Effort & Inspection: normal respiratory effort Auscultation: clear to auscultation bilaterally Cardio Rate: regular rate Rhythm: regular rhythm GI Inspection: normal to inspection Skin General: no rashes or lesions noted Neuro General: patient alert, patient awake and patient oriented x3 Extrem General: capillary refill normal Course Orders Ordered: ED Orders 01/10/23 11:11 Respiratory Panel (Film Array) Stat 01/10/23 11:12 Chest [XR chest 2V] Stat Discontinued Medications Fluorescein Sodium (Fluorescein 1 Mg Strip) 1 mg EYE-BOTH NOW ONE Stop: 01/10/23 12:56 Last Admin: 01/10/23 13:08 Dose: 1 mg Documented By: RB Vital Signs Vital signs: Vital Signs - 8 hr 01/10/23 11:09 01/10/23 13:29 01/10/23 14:04 Temperature 98 F Pulse Rate 56 L 50 L 55 L Respiratory Rate 16 17 19 Blood Pressure 115/52 L 147/67 H 142/65 H Pulse Oximetry 96 98 97 Oxygen Delivery Method Room Air Room Air Medical Decision Making Lab Data Lab results reviewed: Yes I reviewed the patient's lab results. Labs: Lab Results 01/10/23 Range/Units 11:11 Chlamy pneumoniae PCR Not detected (Not Detect) Adenovirus (PCR) Not detected (Not Detect) B. pertussis DNA (PCR) Not detected (Not Detecte) B.parapertussis DNA PCR Not detected (Not Detecte) Coronavirus OC43 (PCR) Not detected (Not Detect) Coronavirus HKU1 (PCR) Not detected (Not Detect) Coronavirus 229E (PCR) Not detected (Not Detect) SARS-CoV-2 (PCR) Not detected (Not Detecte) Coronavirus NL63 (PCR) Not detected (Not Detect) Human Metapneumovir PCR Not detected (Not Detect) Influenza Type A (PCR) Not detected (Not Detect) Influenza Type B (PCR) Not detected (Not Detect) M. pneumoniae (PCR) Not detected (Not Detect) Parainfluenza 1 (PCR) Not detected (Not Detect) Parainfluenza 2 (PCR) Not detected (Not Detect) Parainfluenza 3 (PCR) Not detected (Not Detect) Parainfluenza 4 (PCR) Not detected (Not Detect) RSV (PCR) Not detected (Not Detect) Entero/Rhino (PCR) Not detected (Not Detect) Imaging Data Chest x-ray: Radiologist's Impression: PROCEDURE:? XR CHEST 2V ? INDICATIONS:? cough x 2 weeks ? TECHNIQUE:? 2 views of the chest were acquired.? ? COMPARISON:? [facility], CR, XR CHEST 1V, 09/19/2021, 14:53. ? FINDINGS:? ? Surgical changes and devices:? None.? ? Lungs and pleura:? Lungs are clear.? No pleural effusions or pneumothorax.? ? Mediastinum:? Mediastinal contours are normal.? Heart size is normal.? ? Bones and chest wall:? No suspicious bony abnormalities.? Soft tissues appear unremarkable.? ? IMPRESSION:? No acute cardiopulmonary process. MDM Narrative Medical decision making narrative: Patient is nontoxic appearing. His lungs are clear. Chest x-ray is negative. Respiratory panel is negative. He has obvious upper respiratory symptoms. Plan will be is to have him start on antihistamine such as Claritin or Caitie Zyrtec. We did discuss this. Also have him try Flonase and Nasonex. He was given a prescription for antibiotics since he has had symptoms for quite some time that have not been improving with rwuq-qcn-ymymicu decongestants. If the antihistamines are not working that he can feel and start taking as directed. No indication for admission to the hospital. Patient was given return precautions and follow-up instructions. He expressed understanding and agreement. Discharge Plan Departure Patient Disposition: Home Clinical Impression: Cough, Sinus congestion Instructions: Cough (Alternative Therapy), Cough Activity Restrictions/Additional Instructions: Recommend that you continue to take all of your medications as directed. I would hold on the antibiotics that you were given a prescription for until you have tried the pxfs-ieh-jddshpq antihistamine such as Claritin or Caitie or Zyrtec. The generic versions these medications are appropriate. You can also try Flonase or Nasonex which are nasal sprays. Contact your primary doctor for follow-up. Return to the emergency department for new or worsening symptoms. Prescriptions: New azithromycin 250 mg tablet See Rx Instructions .ROUTE .COMPLEX Qty: 6 0RF Rx Instructions: For 250 mg dose pack: take 500 mg today (day 1), then 250 mg for 4 days (days 2-5) No Action (DME) blood sugar diagnostic [Blood Glucose Test] Strip See Rx Instructions .ROUTE .MEDSUPPLY Qty: 400 3RF Rx Instructions: Use to check blood sugar 1-2 times daily as directed by physician warfarin 5 mg tablet See Rx Instructions .ROUTE .COMPLEX Qty: 90 3RF Dose Instruction: TAKE 1 TABLET BY MOUTH ONCE DAILY IN THE EVENING DIRECTED Rx Instructions: TAKE 1 TABLET BY MOUTH ONCE DAILY IN THE EVENING DIRECTED (DME) Disabled Parking Permit See Rx Instructions .ROUTE .MEDSUPPLY Qty: 1 0RF Rx Instructions: I find this person to be disabled metoprolol tartrate 50 mg tablet See Rx Instructions .ROUTE .COMPLEX Qty: 180 3RF Dose Instruction: TAKE ONE TABLET BY MOUTH TWICE DAILY Rx Instructions: TAKE ONE TABLET BY MOUTH TWICE DAILY glipizide 10 mg tablet extended release 24hr 10 mg PO DAILY Qty: 90 3RF ciclopirox 8 % solution 1 applic topical BEDTIME 28 Days Qty: 6.6 1RF sildenafil 100 mg tablet 50 mg PO DAILY PRN (Reason: sexual activity) Qty: 10 1RF Rx Instructions: administer 30 minutes to 4 hours before activity (DME) Diabetic shoes and inserts See Rx Instructions .Route .MEDSUPPLY Qty: 1 0RF Rx Instructions: As directed doxazosin 4 mg tablet See Rx Instructions .ROUTE .COMPLEX Qty: 90 3RF Dose Instruction: TAKE ONE TABLET BY MOUTH IN THE EVENING Rx Instructions: TAKE ONE TABLET BY MOUTH IN THE EVENING atorvastatin [Lipitor] 20 mg tablet 20 mg PO DAILY Qty: 90 3RF spironolactone 25 mg tablet See Rx Instructions .ROUTE .COMPLEX Qty: 90 3RF Dose Instruction: TAKE ONE TABLET BY MOUTH ONE TIME DAILY Rx Instructions: TAKE ONE TABLET BY MOUTH ONE TIME DAILY levothyroxine 50 mcg tablet See Rx Instructions .ROUTE .COMPLEX Qty: 90 1RF Dose Instruction: TAKE ONE TABLET BY MOUTH EVERY MORNING Rx Instructions: TAKE ONE TABLET BY MOUTH EVERY MORNING metformin 1,000 mg tablet See Rx Instructions .ROUTE .COMPLEX Qty: 180 0RF Dose Instruction: TAKE 1 TABLET BY MOUTH TWICE DAILY DUE FOR A MEDICATION CHECK APPOINTMENT Rx Instructions: TAKE 1 TABLET BY MOUTH TWICE DAILY DUE FOR A MEDICATION CHECK APPOINTMENT timolol 0.5 % Drops 1 drp ophthalmic (eye) BID Referrals: Joel Alas MD [Primary Care Provider] - Stand Alone Forms: Patient Portal/API
[2023-01-10] MEDS: FLUORESCEIN 1 MG STRIP EYE-BOTH (13:08)
[2023-01-10 13:29] VITALS: BP 147/67; PULSE 50; RESP 17; O2SAT 98
[2023-01-10 13:37] LABS: Adenovirus Not Detected (Not Detect); B. parapertussis Not Detected (Not Detecte); Bordetella pertussis Not Detected (Not Detecte); Chlamydophila pneumoniae Not Detected (Not Detect); Coronavirus 229E Not Detected (Not Detect); Coronavirus HKU1 Not Detected (Not Detect); Coronavirus NL 63 Not Detected (Not Detect); Coronavirus OC43 Not Detected (Not Detect); Human Metapneumovirus Not Detected (Not Detect); Human Rhinovirus/Enterovirus Not Detected (Not Detect); Influenza A Not Detected (Not Detect); Influenza B Not Detected (Not Detect); Mycoplasma pneumoniae Not Detected (Not Detect); Parainfluenza Virus 1 Not Detected (Not Detect); Parainfluenza Virus 2 Not Detected (Not Detect); Parainfluenza Virus 3 Not Detected (Not Detect); Parainfluenza Virus 4 Not Detected (Not Detect); Respiratory Syncytial Virus Not Detected (Not Detect); SARS- CoV-2 Not Detected (Not Detecte)
[2023-01-10 14:04] VITALS: BP 142/65; PULSE 55; RESP 19; O2SAT 97
== END 2023-01-10 14:09 | disposition home or self-care (01) ==
PROVIDERS: Emergency Provider Emergency Medicine; PCP Family Medicine
DX: R05.9 Cough, unspecified (principal); R09.81 Nasal congestion; Z20.822 Contact with and (suspected) exposure to COVID-19
CPT/HCPCS: 71046; 87633; 99283

== ENCOUNTER → 2023-01-25 10:27 | Outpatient (CLI) | payer MEDICARE, OTHER, SELFPAY ==
[2023-01-25 12:07] LABS: Alanine Aminotransferase 22 IU/L (<50); Albumin Globulin Ratio 1.4 (1.0-2.8); Alkaline Phosphatase 45 U/L (38-126); Aspartate Aminotransferase 22 IU/L (17-59); BUN Creatinine Ratio 22.5 (6-22); Bilirubin Total 0.5 mg/dL (0.2-1.3); Blood Urea Nitrogen 25 mg/dL (9-20); Carbon Dioxide 26 mmol/L (22-32); Chloride 100 mmol/L (98-107); Cholesterol 136 mg/dL (140-199); Estimated Glomerular Filt Rate > 60 mL/min (>60); Globulin 2.9 g/dL (1.7-4.1); Glucose 150 mg/dL (80-110); HDL Cholesterol 52 mg/dL (40-60); HEMOLYSIS < 15 (0-50); LDL Cholesterol Calculated 63 mg/dL (<100); Sodium 135 mmol/L (137-145); Total Protein 6.9 g/dL (6.3-8.2); Triglycerides 104 mg/dL (35-150)
[2023-01-25 15:02] LABS: Creatinine Urine Random 121.4 mg/dL
[2023-01-25 15:07] LABS: Microalbumin Urine Random < 0.6 mg/dL (0-1.6)
[2023-01-26 05:13] LABS: Fructosamine 248 umol/L (0-285)
[2023-01-26 06:44] LABS: x Labcorp Estim. Avg Glu (eAG) 166 mg/dL (.); x Labcorp Hemoglobin A1c 7.4 % (4.8-5.6)
== END ==
PROVIDERS: PCP Family Medicine; Referring Provider Internal Medicine Endocrinology, Diabetes & Metabolism; Visit Provider Internal Medicine Endocrinology, Diabetes & Metabolism
DX: E11.21 Type 2 diabetes mellitus with diabetic nephropathy (principal)
CPT/HCPCS: 36415; 80053; 80061; 82043; 82570; 82985; 83036

== ENCOUNTER 2023-04-07 11:47 | Emergency (ER) | payer MEDICARE, OTHER, SELFPAY ==
[2023-04-07 12:13] VITALS: BP 156/82; PULSE 51; RESP 18; TEMP 37; O2SAT 97; BMI 29.0
--- NOTE | 2023-04-07 12:40 | DI.RAD.S_ITS ---
PROCEDURE: XR FOOT RT 2V INDICATIONS: Gout versus cellulitis to the right 1st MCP TECHNIQUE: 3 views of the foot were acquired. COMPARISON: None. FINDINGS: Bones: No fractures or dislocations. No suspicious bony lesions. 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 Mild tibiotalar osteoarthritic changes. Plantar calcaneal spur. Soft tissues: No tibiotalar joint effusion. Achilles tendon appears normal. Soft tissue swelling of the 1st metacarpophalangeal joint. Vascular calcifications. IMPRESSION: Focal soft tissue swelling of the 1st metacarpophalangeal joint without evidence of osseous erosion. Dictated by: Adriano Martinez M.D. on 04/07/2023 at 12:08 Approved by: Adriano Martinez M.D. on 04/07/2023 at 12:12
--- NOTE | 2023-04-07 12:42 | ED_ITS ---
HPI - Extremity Problem <Jonna Velasquez [facility] - Last Filed: 04/07/23 13:42> General Chief complaint: Extremity Problem,Nontraumatic Stated complaint: rt foot pain Time Seen by Provider: 04/07/23 12:25 Source: patient and family Mode of arrival: Ambulatory History of Present Illness HPI Narrative: This is an 82-year-old gentleman with history of atrial flutter and prior pulmonary embolism who is anticoagulated on warfarin with an INR goal of 2.0-3.0 who presents today complaining of right foot pain over the MCP joint for the last 2 weeks. States that it has progressively gotten worse and he does have a history of peripheral neuropathy but states that the pain has been severe to the right great MCP joint over the last couple of days affecting his ability to walk on it. States the all movement feels like fractured bone and it is warm to touch with redness. States that his last INR was 2.7 2 weeks ago. States that he is a diabetic and has highly variable glucose levels and is wearing a CGM. Related Data Home Medications Medication Instructions Recorded Confirmed timolol 0.5 % eye drops 1 drp ophthalmic (eye) BID 02/11/18 04/28/22 Previous Rx's Medication Instructions Recorded blood sugar diagnostic (Blood #400 ea 12/15/19 Glucose Test strips) warfarin 5 mg tablet See Rx Instructions .Route 03/20/22 .COMPLEX #90 tabs metoprolol tartrate 50 mg tablet See Rx Instructions .Route 04/18/22 .COMPLEX #180 tabs glipizide 10 mg tablet, extended 10 mg PO DAILY #90 tabs 05/08/22 release 24 hr ciclopirox 8 % topical solution 1 applic topical BEDTIME 4 weeks 05/30/22 #6.6 mL sildenafil 100 mg tablet 50 mg PO DAILY PRN sexual activity 05/30/22 #10 tabs Diabetic shoes and inserts #1 ea 06/15/22 doxazosin 4 mg tablet See Rx Instructions .Route 08/08/22 .COMPLEX #90 tabs atorvastatin 20 mg tablet (Lipitor) 20 mg PO DAILY #90 tabs 08/22/22 spironolactone 25 mg tablet See Rx Instructions .Route 09/12/22 .COMPLEX #90 tabs azithromycin 250 mg tablet See Rx Instructions PO .COMPLEX #6 01/10/23 tabs metformin 1,000 mg tablet See Rx Instructions .Route 02/20/23 .COMPLEX #180 tabs levothyroxine 50 mcg tablet 50 mcg PO QAM #90 tabs 03/15/23 gabapentin 300 mg capsule 300 mg PO BID #60 caps 03/26/23 [address]ing Permit #1 ea 04/03/23 colchicine (gout) 0.6 mg tablet 0.3 mg PO DAILY #30 tabs 04/07/23 colchicine (gout) 0.6 mg tablet 0.6 - 1.2 mg PO DAILY PRN gout 04/07/23 flare #30 tabs hydrocodone 5 mg-acetaminophen 325 1 tab PO Q6H PRN pain #14 tabs 04/07/23 mg tablet hydrocodone 5 mg-acetaminophen 325 1 tab PO Q6H PRN pain #14 tabs 04/07/23 mg tablet Allergies Allergy/AdvReac Type Severity Reaction Status Date / Time oyster extract Allergy Mild Vomiting Verified 04/07/23 12:17 Review of Systems <SHARITA Hill - Last Filed: 04/07/23 13:42> Review of Systems ROS Unobtainable: All systems reviewed & are unremarkable except as noted in HPI and below Patient History <SHARITA Hill - Last Filed: 04/07/23 13:42> Medical History Acute diastolic heart failure (10/27/16) 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) Diabetes mellitus Hyperlipidemia Hypertension Lumbar spine pain Other acute pulmonary embolism without acute cor pulmonale (11/08/16) Polymyalgia rheumatica (05/16/17) Postherpetic neuralgia (10/27/16) Pulmonary emboli Surgical History Status post laminectomy (2011) Status post transurethral resection of prostate Family History Father CAD (coronary artery disease) Social History marital status: Smoking Status: Former smoker alcohol intake: current substance use type: does not use Smoking Status: Former smoker alcohol intake frequency: a few times a month Substance Use Type: does not use Exam <SHARITA Hill - Last Filed: 04/07/23 13:42> Narrative Exam Narrative: MSK: Patient's right foot has an erythematous region surrounding the MCP joint with tenderness to palpation, warmth, no circumferential edema, 2 of his toenails are overgrown without evidence of wound. Initial Vital Signs Initial Vital Signs: Vital Signs Temperature 98.6 F 04/07/23 12:13 Pulse Rate 51 L 04/07/23 12:13 Respiratory Rate 18 04/07/23 12:13 Blood Pressure 156/82 H 04/07/23 12:13 Pulse Oximetry 97 04/07/23 12:13 Oxygen Delivery Method Room Air 04/07/23 12:13 <Daja Drew DO - Last Filed: 04/10/23 09:17> Initial Vital Signs Initial Vital Signs: Vital Signs Temperature 98.6 F 04/07/23 12:13 Pulse Rate 51 L 04/07/23 12:13 Respiratory Rate 18 04/07/23 12:13 Blood Pressure 156/82 H 04/07/23 12:13 Pulse Oximetry 97 04/07/23 12:13 Oxygen Delivery Method Room Air 04/07/23 12:13 Scores <SHARITA Hill - Last Filed: 04/07/23 13:42> Wells' Criteria for DVT Active Cancer (Treatment within 6 months): No Bedridden recently >3 days or major surgery within 4 weeks: No Calf Swelling >3cm compared to other leg: No Collateral (nonvericose) superficial veins present: No Entire leg swollen: Yes Course <SHARITA Hill - Last Filed: 04/07/23 13:42> Orders Ordered: Discontinued Medications Hydrocodone Bitart/Acetaminophen (Hydrocodone/Acet 5/325 Tablet) 1 tab PO NOW ONE Stop: 04/07/23 12:41 Last Admin: 04/07/23 13:20 Dose: 1 tab Documented By: NR Colchicine (Colchicine 0.6 Mg Tablet) 1.2 mg PO NOW ONE Stop: 04/07/23 12:58 Last Admin: 04/07/23 13:17 Dose: 1.2 mg Documented By: NR Pantoprazole Sodium (Pantoprazole Dr 20 Mg Tablet) 20 mg PO NOW ONE Stop: 04/07/23 12:41 Last Admin: 04/07/23 13:20 Dose: 20 mg Documented By: NR Vital Signs Vital signs: Vital Signs - 8 hr 04/07/23 12:13 Temperature 98.6 F Pulse Rate 51 L Respiratory Rate 18 Blood Pressure 156/82 H Pulse Oximetry 97 Oxygen Delivery Method Room Air <Daja Drew DO - Last Filed: 04/10/23 09:17> Orders Ordered: Discontinued Medications Hydrocodone Bitart/Acetaminophen (Hydrocodone/Acet 5/325 Tablet) 1 tab PO NOW ONE Stop: 04/07/23 12:41 Last Admin: 04/07/23 13:20 Dose: 1 tab Documented By: NR Colchicine (Colchicine 0.6 Mg Tablet) 1.2 mg PO NOW ONE Stop: 04/07/23 12:58 Last Admin: 04/07/23 13:17 Dose: 1.2 mg Documented By: NR Pantoprazole Sodium (Pantoprazole Dr 20 Mg Tablet) 20 mg PO NOW ONE Stop: 04/07/23 12:41 Last Admin: 04/07/23 13:20 Dose: 20 mg Documented By: NR Vital Signs Vital signs: Vital Signs - 8 hr 04/07/23 12:13 Temperature 98.6 F Pulse Rate 51 L Respiratory Rate 18 Blood Pressure 156/82 H Pulse Oximetry 97 Oxygen Delivery Method Room Air MDM - Extremity (Nontraumatic) <SHARITA Hill - Last Filed: 04/07/23 13:42> Lab Data Labs: Lab Results 04/07/23 Range/Units 12:48 PT 36.6 H (10.1-12.7) SECONDS INR 3.2 H (0.9-1.3) MDM Narrative Medical decision making narrative: Chief Complaint: Foot problem/pain Multiple etiologies for patient's complaint considered including, but not limited to: Gout, DVT, sprain, strain, cellulitis, I have independently reviewed the patient's vital signs and nursing notes as well as prior records if available. Plan: Patient reports that his blood sugars are highly variable, he is anticoagulated on warfarin, unknown if he is at his goal or not, obtained INR, today he was 3.2, his INR goal is 2-3 for history of pulmonary embolism and history of atrial fibrillation/flutter. Course of Care: Patient was treated with 1.2 mg colchicine for gout flare, he states that he has had this medication before but has not been taking it. Patient was fitted in orthopedic shoe which he was able to ambulate in with more success. He understands to take 0.6 mg of colchicine when he picks it up in the pharmacy and take it daily unless it is still causing flare symptoms and he can take 2 and 1 day 8 hours apart and resume 0.6 mg daily thereafter. Patient was given contact information for Dr. Mckinnon to address his to overgrown toenails. He has a history of peripheral neuropathy and has decreased sensation to both lower extremituies just distal to the knee. Social considerations that may affect disposition: none Questions are addressed and there is agreement with the plan and for follow-up with his PCP and to recheck his INR in two days. Patient understands to hold his warfarin tonight due to his supratherapeutic level and may hold it for a secondary night while he is treating his gout with colchicine. I consulted with the ED attending physician Dr. Drew as needed for higher level of care considerations and they were available for discussion and recommendations regarding plan of care and diagnostic testing. Patient is appropriate for outpatient management. 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 I am sorry for you and this pain. Please take 1 tab of colchicine when you picking tech this medication for a maximum dose today. Then you can take 1 tab daily until your flare starts to resolve, while it is still very painful, take up to 2 tabs total during the day and at least 8 hours apart. Please watch your blood sugar closely, try to mitigate the elevated sugars with diet and avoid carbs as best as able. Please hold your warfarin tonight, your INR is 3.2. You may choose to hold it for another day and recheck your INR in 2 days. This is what I would recommend. Wear the walking shoe as able and try to keep it elevated, give it a few days to calm down and it should start getting better soon. If you develop a wound or worsening pain or signs of infection, please come back. *What to do: *Please continue to take your regular medications as directed. [x ] New medication prescriptions sent to your pharmacy: [[facility] ] [ ] New medication written as a paper prescription [ ] No new medications given *Please call and schedule follow up with your primary care provider in 2-3 days, at least for an update. Let them know you were seen in the Emergency Department for the above problem. We will electronically transmit a record of today's note if your PCP or specialist is in our system. *If you do not have a primary care provider please contact [phone] to establish care with one of the [facility] primary care providers. *Return to the Emergency Department for worsening symptoms, inability to keep liquids down, fever greater than 101F, chills, or other concerning symptom. Prescriptions: New colchicine (gout) 0.6 mg tablet 0.6 - 1.2 mg PO DAILY PRN (Reason: gout flare) Qty: 30 0RF hydrocodone-acetaminophen 5-325 mg tablet 1 tab PO Q6H PRN (Reason: pain) Qty: 14 0RF colchicine (gout) 0.6 mg tablet 0.3 mg PO DAILY Qty: 30 0RF hydrocodone-acetaminophen 5-325 mg tablet 1 tab PO Q6H PRN (Reason: pain) Qty: 14 0RF No Action (DME) blood sugar diagnostic [Blood Glucose Test] Strip See Rx Instructions .ROUTE .MEDSUPPLY Qty: 400 3RF Rx Instructions: Use to check blood sugar 1-2 times daily as directed by physician warfarin 5 mg tablet See Rx Instructions .ROUTE .COMPLEX Qty: 90 3RF Dose Instruction: TAKE 1 TABLET BY MOUTH ONCE DAILY IN THE EVENING DIRECTED Rx Instructions: TAKE 1 TABLET BY MOUTH ONCE DAILY IN THE EVENING DIRECTED metoprolol tartrate 50 mg tablet See Rx Instructions .ROUTE .COMPLEX Qty: 180 3RF Dose Instruction: TAKE ONE TABLET BY MOUTH TWICE DAILY Rx Instructions: TAKE ONE TABLET BY MOUTH TWICE DAILY glipizide 10 mg tablet extended release 24hr 10 mg PO DAILY Qty: 90 3RF ciclopirox 8 % solution 1 applic topical BEDTIME 28 Days Qty: 6.6 1RF sildenafil 100 mg tablet 50 mg PO DAILY PRN (Reason: sexual activity) Qty: 10 1RF Rx Instructions: administer 30 minutes to 4 hours before activity (DME) Diabetic shoes and inserts See Rx Instructions .Route .MEDSUPPLY Qty: 1 0RF Rx Instructions: As directed doxazosin 4 mg tablet See Rx Instructions .ROUTE .COMPLEX Qty: 90 3RF Dose Instruction: TAKE ONE TABLET BY MOUTH IN THE EVENING Rx Instructions: TAKE ONE TABLET BY MOUTH IN THE EVENING atorvastatin [Lipitor] 20 mg tablet 20 mg PO DAILY Qty: 90 3RF spironolactone 25 mg tablet See Rx Instructions .ROUTE .COMPLEX Qty: 90 3RF Dose Instruction: TAKE ONE TABLET BY MOUTH ONE TIME DAILY Rx Instructions: TAKE ONE TABLET BY MOUTH ONE TIME DAILY metformin 1,000 mg tablet See Rx Instructions .ROUTE .COMPLEX Qty: 180 0RF Dose Instruction: TAKE 1 TABLET BY MOUTH TWICE DAILY DUE FOR A MEDICATION CHECK APPOINTMENT Rx Instructions: TAKE 1 TABLET BY MOUTH TWICE DAILY levothyroxine 50 mcg tablet 50 mcg PO QAM Qty: 90 0RF gabapentin 300 mg capsule 300 mg PO BID Qty: 60 5RF (DME) Disabled Parking Permit See Rx Instructions .ROUTE .MEDSUPPLY Qty: 1 0RF Rx Instructions: I find this person to be disabled timolol 0.5 % Drops 1 drp ophthalmic (eye) BID azithromycin 250 mg tablet See Rx Instructions .ROUTE .COMPLEX Qty: 6 0RF Rx Instructions: For 250 mg dose pack: take 500 mg today (day 1), then 250 mg for 4 days (days 2-5) Referrals: Summer Mckinnon DPM [Physician] - Joel Alas MD [Primary Care Provider] - Stand Alone Forms: Patient Portal/API <Daja Drew DO - Last Filed: 04/10/23 09:17> Cosign ED Attending Cosignature Attestation: I was immediately available in the department for consultation. Documentation has been reviewed. Case not discussed.
[2023-04-07 13:02] LABS: INR 3.2 (0.9-1.3); Prothrombin Time 36.6 SECONDS (10.1-12.7)
[2023-04-07] MEDS: COLCHICINE 0.6 MG TABLET 1.2 MG PO (13:17)
[2023-04-07] MEDS: PANTOPRAZOLE DR 20 MG TABLET PO (13:20)
[2023-04-07] MEDS: HYDROCODONE/ACET 5/325 TABLET 1 TAB PO (13:20)
== END 2023-04-07 13:45 | disposition home or self-care (01) ==
PROVIDERS: Emergency Provider Nurse Practitioner Critical Care Medicine; PCP Family Medicine
DX: M10.9 Gout, unspecified (principal); R79.1 Abnormal coagulation profile; Z79.01 Long term (current) use of anticoagulants
CPT/HCPCS: 73630; 85610; 99283

== ENCOUNTER → 2024-03-03 10:40 | Outpatient (CLI) | payer MEDICARE, OTHER, SELFPAY ==
[2024-03-03 13:24] LABS: Add Manual Diff / Slide Review NO; Basophils Absolute Auto 0 /uL (0-100); Basophils Percent Auto 0.5 % (0-2); Eosinophils Absolute Auto 400 /uL (0-450); Eosinophils Percent Auto 4.6 % (2-4); Hematocrit 35.3 % (41-53); Lymphocytes Absolute Auto 2400 /uL (1100-4500); Lymphocytes Percent Auto 28.2 % (25-40); Mean Corpuscular HGB Conc 33.9 % (30-36); Mean Corpuscular Hemoglobin 30.4 PG (26-34); Mean Corpuscular Volume 89.6 fL (80-100); Monocytes Absolute Auto 600 /uL (0-900); Monocytes Percent Auto 7.2 % (3-14); Neutrophils Absolute Auto 5100 /uL (1500-7000); Neutrophils Percent Auto 59.5 % (50-75); Platelet Count 226 X10^3/uL (150-400); Red Blood Cell Count 3.94 X10^6/uL (4.5-5.9); Red Cell Distribution Width 14.5 % (11.6-14.8); White Blood Cell Count 8.6 X10^3/uL (4.5-11.0)
[2024-03-03 13:33] LABS: Hemoglobin A1C% w Est Avg Glu 7.2 % (4.0-6.0)
[2024-03-03 14:19] LABS: Creatinine Urine Random 139.81 mg/dL; Microalbumin Urine Random 1.2 mg/dL (0-1.6)
[2024-03-03 14:58] LABS: Alanine Aminotransferase 19 IU/L (<50); Albumin 4.1 g/dL (3.5-5.0); Albumin Globulin Ratio 1.4 (1.0-2.8); Alkaline Phosphatase 38 U/L (38-126); Aspartate Aminotransferase 24 IU/L (17-59); Bilirubin Total 0.6 mg/dL (0.2-1.3); Blood Urea Nitrogen 29 mg/dL (9-20); Calcium 8.7 mg/dL (8.4-10.2); Carbon Dioxide 21 mmol/L (22-32); Chloride 111 mmol/L (98-107); Cholesterol 144 mg/dL (140-199); Estimated Glomerular Filt Rate 53 mL/min (>60); Globulin 2.9 g/dL (1.7-4.1); Glucose 113 mg/dL (80-110); HDL Cholesterol 47 mg/dL (40-60); HEMOLYSIS < 15 (0-50); LDL Cholesterol Calculated 69 mg/dL (<100); Potassium 4.9 mmol/L (3.4-5.1); Sodium 138 mmol/L (137-145); Triglycerides 142 mg/dL (35-150)
== END ==
LOC: LAB 10:41
PROVIDERS: PCP Family Medicine; Referring Provider Internal Medicine Endocrinology, Diabetes & Metabolism; Visit Provider Internal Medicine Endocrinology, Diabetes & Metabolism
DX: E11.21 Type 2 diabetes mellitus with diabetic nephropathy (principal)
CPT/HCPCS: 36415; 80053; 80061; 82043; 82570; 83036; 85025

== ENCOUNTER → 2024-05-20 08:46 | Outpatient (CLI) | payer MEDICARE, OTHER, SELFPAY ==
[2024-05-20 11:02] LABS: Creatinine Urine Random 104.71 mg/dL
[2024-05-20 11:07] LABS: BUN Creatinine Ratio 21.4 (6-22); Blood Urea Nitrogen 24 mg/dL (9-20); Carbon Dioxide 19 mmol/L (22-32); Chloride 106 mmol/L (98-107); Estimated Glomerular Filt Rate > 60 mL/min (>60); Glucose 243 mg/dL (80-110); HEMOLYSIS 32 (0-50); Sodium 134 mmol/L (137-145)
[2024-05-20 11:08] LABS: Cholesterol 136 mg/dL (140-199); HDL Cholesterol 46 mg/dL (40-60); LDL Cholesterol Calculated 65 mg/dL (<100); Triglycerides 125 mg/dL (35-150)
[2024-05-20 11:09] LABS: Potassium 5.4 mmol/L (3.4-5.1)
[2024-05-20 11:15] LABS: Microalbumin Urine Random 0.8 mg/dL (0-1.6)
== END ==
LOC: LAB 08:48
PROVIDERS: PCP Family Medicine; Referring Provider Internal Medicine Endocrinology, Diabetes & Metabolism; Visit Provider Physician Assistant
DX: E11.65 Type 2 diabetes mellitus with hyperglycemia (principal); N28.9 Disorder of kidney and ureter, unspecified
CPT/HCPCS: 36415; 80048; 80061; 82043; 82570; 83036

== ENCOUNTER → 2024-06-18 15:10 | Outpatient (CLI) | payer MEDICARE, OTHER, SELFPAY ==
[2024-06-18 16:33] LABS: Prothrombin Time 71.2 SECONDS (9.4-12.5)
[2024-06-18 16:45] LABS: HEMOLYSIS < 15 (0-50)
[2024-06-18 16:53] LABS: INR 6.1 (0.9-1.3)
[2024-06-18 16:59] LABS: Potassium 6.5 mmol/L (3.4-5.1)
== END ==
PROVIDERS: PCP Family Medicine; Referring Provider Physician Assistant; Visit Provider Family Medicine
DX: I48.21 Permanent atrial fibrillation (principal); Z86.711 Personal history of pulmonary embolism; Z79.01 Long term (current) use of anticoagulants; E87.5 Hyperkalemia
CPT/HCPCS: 36415; 84132; 85610

== ENCOUNTER → 2024-06-20 14:24 | Outpatient (CLI) | payer MEDICARE, OTHER, SELFPAY ==
[2024-06-20 14:45] LABS: INR 2.4 (0.9-1.3); Prothrombin Time 27.6 SECONDS (9.4-12.5)
[2024-06-20 14:55] LABS: HEMOLYSIS < 15 (0-50)
== END ==
PROVIDERS: PCP Family Medicine; Referring Provider Physician Assistant; Visit Provider Physician Assistant
DX: E87.5 Hyperkalemia (principal); Z86.711 Personal history of pulmonary embolism; Z79.01 Long term (current) use of anticoagulants
CPT/HCPCS: 36415; 84132; 85610

== ENCOUNTER → 2024-06-24 12:40 | Outpatient (CLI) | payer MEDICARE, OTHER, SELFPAY ==
[2024-06-24 15:03] LABS: HEMOLYSIS < 15 (0-50)
[2024-06-24 15:05] LABS: Potassium 6.1 mmol/L (3.4-5.1)
== END ==
PROVIDERS: PCP Family Medicine; Referring Provider Family Medicine; Visit Provider Family Medicine
DX: E87.5 Hyperkalemia (principal)
CPT/HCPCS: 36415; 84132

== ENCOUNTER 2024-06-24 17:47 | Emergency (ER) | payer MEDICARE, OTHER, SELFPAY ==
[2024-06-24] VITALS (11 sets, daily range): BP systolic 124–138; BP diastolic 58–64; PULSE 49–52; RESP 13–28; TEMP 36.2; O2SAT 97; BMI 29.0
--- NOTE | 2024-06-24 18:07 | EKG_ITS ---
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
[2024-06-24 19:02] LABS: Add Manual Diff / Slide Review NO; Basophils Absolute Auto 100 /uL (0-100); Eosinophils Absolute Auto 400 /uL (0-450); Eosinophils Percent Auto 3.8 % (2-4); Hematocrit 35.9 % (41-53); Hemoglobin 12.1 g/dL (13.5-17.5); Lymphocytes Absolute Auto 3500 /uL (1100-4500); Lymphocytes Percent Auto 29.7 % (25-40); Mean Corpuscular HGB Conc 33.6 % (30-36); Mean Corpuscular Hemoglobin 30.5 PG (26-34); Mean Corpuscular Volume 90.6 fL (80-100); Monocytes Absolute Auto 800 /uL (0-900); Monocytes Percent Auto 6.9 % (3-14); Neutrophils Absolute Auto 6900 /uL (1500-7000); Neutrophils Percent Auto 58.6 % (50-75); Red Blood Cell Count 3.96 X10^6/uL (4.5-5.9); Red Cell Distribution Width 14.3 % (11.6-14.8); White Blood Cell Count 11.7 X10^3/uL (4.5-11.0)
[2024-06-24 20:02] LABS: Alanine Aminotransferase 22 IU/L (<50); Albumin 4.6 g/dL (3.5-5.0); Albumin Globulin Ratio 1.6 (1.0-2.8); Alkaline Phosphatase 40 U/L (38-126); Aspartate Aminotransferase 28 IU/L (17-59); BUN Creatinine Ratio 26.8 (6-22); Bilirubin Total 0.8 mg/dL (0.2-1.3); Blood Urea Nitrogen 40 mg/dL (9-20); Calcium 9.3 mg/dL (8.4-10.2); Carbon Dioxide 20 mmol/L (22-32); Chloride 106 mmol/L (98-107); Estimated Glomerular Filt Rate 46 mL/min (>60); Globulin 2.8 g/dL (1.7-4.1); Glucose 126 mg/dL (80-110); Lipase 78 U/L (23-300); Magnesium 1.6 mg/dL (1.6-2.3); Sodium 136 mmol/L (137-145); Total Protein 7.4 g/dL (6.3-8.2)
[2024-06-24 20:03] LABS: HEMOLYSIS 63 (0-50); Potassium 6.1 mmol/L (3.4-5.1)
--- NOTE | 2024-06-24 20:51 | ED.RECABL ---
HPI - Recheck/Abnormal Lab/Rx General Chief Complaint: Recheck/Abnormal Lab/Rx Stated Complaint: Abnormal Labs, sent by PCP Time Seen by Provider: 06/24/24 18:10 Source: patient Mode of arrival: Ambulatory Limitations: no limitations History of Present Illness HPI narrative: Patient is an 83-year-old male. States that for the past several days/weeks he has been dealing with his primary provider about elevations in his potassium. He was also on warfarin. He checks his INR regularly. He states that he was having essentially no symptoms to include lightheadedness, chest pain, shortness of breath, abdominal pain, change in bowel habits or fevers. He stated that his potassium was elevated what she reports was 6.5. He was placed on Lasix for 1 day. He had his potassium rechecked and he states that it was 6.1. He was continued on the Lasix. He had the potassium rechecked again and he stated that it was somewhat higher so he was directed to come to the emergency department for further evaluation. Related Data Home Medications Medication Instructions Recorded Confirmed timolol 0.5 % eye drops 1 drp ophthalmic (eye) BID 02/11/18 03/26/24 Previous Rx's Medication Instructions Recorded blood sugar diagnostic (Blood #400 ea 12/15/19 Glucose Test strips) Diabetic shoes and inserts #1 ea 06/15/22 Disabled Parking Permit #1 ea 04/03/23 colchicine 0.6 mg tablet 0.3 mg (1/2 x 0.6 mg) PO DAILY #30 07/03/23 tabs doxazosin 4 mg tablet See Rx Instructions .Route 08/03/23 .COMPLEX #90 tabs metoprolol tartrate 50 mg tablet 50 mg PO BID #180 tabs 08/03/23 sildenafil 100 mg tablet 50 mg (1/2 x 100 mg) PO DAILY PRN 08/13/23 sexual activity #10 tabs metformin 1,000 mg tablet 1,000 mg PO BID #180 tabs 11/21/23 warfarin 5 mg tablet 5 mg PO QPM #90 tabs 11/22/23 atorvastatin 20 mg tablet 20 mg PO DAILY #90 tabs 02/18/24 levothyroxine 50 mcg tablet 50 mcg PO QAM #90 tabs 03/27/24 gabapentin 300 mg capsule 300 mg PO BID #180 caps 04/02/24 lisinopril 10 mg tablet 10 mg PO DAILY #90 tabs 04/15/24 spironolactone 25 mg tablet See Rx Instructions .Route 04/15/24 .COMPLEX #90 tabs glipizide 10 mg tablet, extended 10 mg PO DAILY #90 tabs 04/30/24 release 24 hr furosemide 20 mg tablet 20 mg PO QAM #30 tabs 06/20/24 sodium polystyrene sulfonate 15 g PO BID #453.6 grams 06/24/24 Allergies Allergy/AdvReac Type Severity Reaction Status Date / Time oyster extract Allergy Mild Vomiting Verified 03/26/24 15:00 Review of Systems Review of Systems ROS Unobtainable: All systems reviewed & are unremarkable except as noted in HPI and below Patient History Medical History Diabetes mellitus Hyperlipidemia Hypertension Lumbar spine pain Polymyalgia rheumatica (05/16/17) Other acute pulmonary embolism without acute cor pulmonale (11/08/16) Postherpetic neuralgia (10/27/16) 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) Acute diastolic heart failure (10/27/16) Pulmonary emboli Surgical History Status post transurethral resection of prostate Status post laminectomy (2011) Family History Father CAD (coronary artery disease) Social History marital status: Smoking Status: Former smoker alcohol intake: current substance use type: does not use Smoking Status: Former smoker alcohol intake frequency: a few times a month Substance Use Type: does not use Exam Initial Vital Signs Initial Vital Signs: Vital Signs Temperature 97.1 F L 06/24/24 17:59 Pulse Rate 52 L 06/24/24 17:59 Respiratory Rate 18 06/24/24 17:59 Blood Pressure 126/60 06/24/24 17:59 Pulse Oximetry 97 06/24/24 17:59 Oxygen Delivery Method Room Air 06/24/24 17:59 Const General: cooperative, comfortable and No ill appearing HENMT Head: normal to inspection and normocephalic Resp Effort & Inspection: normal respiratory effort Auscultation: clear to auscultation bilaterally Cardio Rate: bradycardic Rhythm: regular rhythm GI Inspection: normal to inspection Skin General: no rashes or lesions noted Neuro General: patient alert, patient awake and moves all extremities Course Orders Ordered: ED Orders 06/24/24 18:07 EKG-12 Lead Stat 06/24/24 18:25 Complete Blood Count AUTO DIFF Stat Comprehensive Metabolic Panel Stat Lipase Stat Magnesium Stat Vital Signs Vital signs: Vital Signs - 8 hr 06/24/24 18:29 06/24/24 18:30 06/24/24 19:00 Pulse Rate 50 L 49 L Respiratory Rate 22 13 Blood Pressure 124/64 Pulse Oximetry 06/24/24 19:01 06/24/24 19:01 06/24/24 19:30 Pulse Rate 50 L 50 L Respiratory Rate 28 H 22 Blood Pressure 138/58 L Pulse Oximetry 06/24/24 19:31 06/24/24 19:31 06/24/24 20:00 Pulse Rate 51 L 49 L Respiratory Rate 22 17 Blood Pressure 133/58 L Pulse Oximetry 06/24/24 20:01 06/24/24 20:01 06/24/24 20:30 Pulse Rate 50 L 51 L Respiratory Rate 15 18 Blood Pressure 131/59 L Pulse Oximetry 97 06/24/24 20:31 06/24/24 20:31 Pulse Rate 52 L Respiratory Rate 18 Blood Pressure 135/62 Pulse Oximetry 97 MDM - Recheck/Abnormal Lab/Rx Lab Data Attestation: I reviewed the patient's lab results. 06/24/24 18:25 06/24/24 18:25 Labs: Lab Results 06/24/24 Range/Units 18:25 WBC 11.7 H (4.5-11.0) X10^3/uL RBC 3.96 L (4.5-5.9) X10^6/uL Hgb 12.1 L (13.5-17.5) g/dL Hct 35.9 L (41-53) % MCV 90.6 (80-100) fL MCH 30.5 (26-34) PG MCHC 33.6 (30-36) % RDW 14.3 (11.6-14.8) % Plt Count TNP Neut % (Auto) 58.6 (50-75) % Lymph % (Auto) 29.7 (25-40) % [place] % (Auto) 6.9 (3-14) % Eos % (Auto) 3.8 (2-4) % Baso % (Auto) 1.0 (0-2) % Neut # (Auto) 6900 (6731-7746) /uL Lymph # (Auto) 3500 (4923-8896) /uL [place] # (Auto) 800 (0-900) /uL Eos # (Auto) 400 (0-450) /uL Baso # (Auto) 100 (0-100) /uL PT Cancelled INR Cancelled APTT Cancelled Sodium 136 L (137-145) mmol/L Potassium 6.1 H (3.4-5.1) mmol/L Chloride 106 (98-107) mmol/L Carbon Dioxide 20 L (22-32) mmol/L BUN 40 H (9-20) mg/dL Creatinine 1.49 H (0.66-1.25) mg/dL Estimated GFR 46 L (>60) mL/min BUN/Creatinine Ratio 26.8 H (6-22) Glucose 126 H (80-110) mg/dL Calcium 9.3 (8.4-10.2) mg/dL Magnesium 1.6 (1.6-2.3) mg/dL Total Bilirubin 0.8 (0.2-1.3) mg/dL AST 28 (17-59) IU/L ALT 22 (<50) IU/L Alkaline Phosphatase 40 (38-126) U/L Total Creatine Kinase Cancelled Troponin I Cancelled NT-Pro-B Natriuret Pep Cancelled Total Protein 7.4 (6.3-8.2) g/dL Albumin 4.6 (3.5-5.0) g/dL Globulin 2.8 (1.7-4.1) g/dL Albumin/Globulin Ratio 1.6 (1.0-2.8) Lipase 78 (23-300) U/L ECG Data Attestation: I personally reviewed and interpreted this ECG as follows: Interpretation: Sinus bradycardia Ventricular rate of 50 Normal QRS Normal QTC No ST T wave changes MDM Narrative Medical decision making narrative: Patient is asymptomatic. No EKG changes concerning for hyperkalemia. Potassium this evening is 6.1. He was on Lasix. Also has a creatinine of 1.49. He stated that he was told in the past that his kidney function was somewhat abnormal but was told to just increase his fluid intake. He was not in acute renal failure. Is still producing urine. No emergent intervention needed for his potassium. Will have him continue to take the Lasix. Will also add Kayexalate. This was sent to the pharmacy of his choice. I did recommend that he eat a low potassium diet. Will have him contact his primary doctor for a follow-up. He was given return precautions. He expressed understanding and agreement with the plan. Discharge Plan Departure Patient Disposition: Home Clinical Impression: Hyperkalemia Instructions: DI for Hyperkalemia Activity Restrictions/Additional Instructions: Continue to take the diuretic that was prescribed to you to help lower your potassium. We are going to add a new medicine called Kayexalate. Please take it as directed. You are going to need follow-up with in the next couple days with your primary care doctor. Return to the emergency department for new or worsening symptoms. Prescriptions: New sodium polystyrene sulfonate Powder 15 g PO BID Qty: 453.6 2RF No Action (DME) blood sugar diagnostic [Blood Glucose Test] Strip See Rx Instructions .ROUTE .MEDSUPPLY Qty: 400 3RF Rx Instructions: Use to check blood sugar 1-2 times daily as directed by physician (DME) Diabetic shoes and inserts See Rx Instructions .Route .MEDSUPPLY Qty: 1 0RF Rx Instructions: As directed (DME) Disabled Parking Permit See Rx Instructions .ROUTE .MEDSUPPLY Qty: 1 0RF Rx Instructions: I find this person to be disabled colchicine 0.6 mg tablet 0.3 mg PO DAILY Qty: 30 0RF metoprolol tartrate 50 mg tablet 50 mg PO BID Qty: 180 3RF doxazosin 4 mg tablet See Rx Instructions .ROUTE .COMPLEX Qty: 90 3RF Dose Instruction: TAKE ONE TABLET BY MOUTH IN THE EVENING Rx Instructions: TAKE ONE TABLET BY MOUTH IN THE EVENING sildenafil 100 mg tablet 50 mg PO DAILY PRN (Reason: sexual activity) Qty: 10 1RF Rx Instructions: administer 30 minutes to 4 hours before activity metformin 1,000 mg tablet 1,000 mg PO BID Qty: 180 3RF warfarin 5 mg tablet 5 mg PO QPM Qty: 90 3RF Protocol: Dose Management Condition: Sunday Dose/Route: 5 mg Instruction: 1 x 5 mg tablet Condition: Sunday Dose/Route: 5 mg Instruction: 1 x 5 mg tablet Condition: Sunday Dose/Route: 5 mg Instruction: 1 x 5 mg tablet Condition: Sunday Dose/Route: 5 mg Instruction: 1 x 5 mg tablet Condition: Dose/Route: 5 mg Instruction: 1 x 5 mg tablet Condition: Sunday Dose/Route: 5 mg Instruction: 1 x 5 mg tablet Condition: Sunday Dose/Route: 5 mg Instruction: 1 x 5 mg tablet Protocol Text: Adjustment Start Date: Sunday06/04/24 INR Value: 3.0 INR Date: 06/04/24 Recheck Date: 06/18/24 atorvastatin 20 mg tablet 20 mg PO DAILY Qty: 90 3RF levothyroxine 50 mcg tablet 50 mcg PO QAM Qty: 90 3RF gabapentin 300 mg capsule 300 mg PO BID Qty: 180 3RF lisinopril 10 mg tablet 10 mg PO DAILY Qty: 90 3RF spironolactone 25 mg tablet See Rx Instructions .ROUTE .COMPLEX Qty: 90 3RF Dose Instruction: TAKE ONE TABLET BY MOUTH ONE TIME DAILY Rx Instructions: TAKE ONE TABLET BY MOUTH ONE TIME DAILY glipizide 10 mg tablet extended release 24hr 10 mg PO DAILY Qty: 90 3RF furosemide 20 mg tablet 20 mg PO QAM Qty: 30 0RF timolol 0.5 % Drops 1 drp ophthalmic (eye) BID Referrals: Joel Alas MD [Primary Care Provider] - Stand Alone Forms: Patient Portal/API/Survey
--- NOTE | 2024-06-25 10:00 | PC.NURSE ---
Patient called in asking for assistance locating a pharmacy to fill RX for Kayexalate. [facility] medication in [facility]. Called RX in to [facility], patient notified and will call pharmacy with insurance information and figure out cost point.
== END 2024-06-24 21:12 | disposition home or self-care (01) ==
PROVIDERS: Emergency Medicine; Emergency Provider Emergency Medicine; PCP Family Medicine
DX: E87.5 Hyperkalemia (principal)
CPT/HCPCS: 36415; 80053; 83690; 83735; 84132; 85025; 93005; 99283; 99284

== ENCOUNTER → 2024-07-03 09:19 | Outpatient (CLI) | payer MEDICARE, OTHER, SELFPAY ==
[2024-07-03 11:09] LABS: BUN Creatinine Ratio 22.8 (6-22); Blood Urea Nitrogen 29 mg/dL (9-20); Calcium 8.7 mg/dL (8.4-10.2); Carbon Dioxide 29 mmol/L (22-32); Chloride 101 mmol/L (98-107); Estimated Glomerular Filt Rate 55 mL/min (>60); Glucose 221 mg/dL (80-110); HEMOLYSIS < 15 (0-50); Potassium 4.2 mmol/L (3.4-5.1); Sodium 138 mmol/L (137-145)
== END ==
PROVIDERS: PCP Family Medicine; Referring Provider Physician Assistant; Visit Provider Physician Assistant
DX: E87.5 Hyperkalemia (principal)
CPT/HCPCS: 36415; 80048

== ENCOUNTER → 2024-07-10 15:16 | Outpatient (CLI) | payer MEDICARE, OTHER, SELFPAY ==
[2024-07-10 17:31] LABS: BUN Creatinine Ratio 24.8 (6-22); Blood Urea Nitrogen 35 mg/dL (9-20); Calcium 9.3 mg/dL (8.4-10.2); Carbon Dioxide 25 mmol/L (22-32); Chloride 102 mmol/L (98-107); Estimated Glomerular Filt Rate 49 mL/min (>60); Glucose 119 mg/dL (80-110); HEMOLYSIS < 15 (0-50); Potassium 5.1 mmol/L (3.4-5.1); Sodium 134 mmol/L (137-145)
== END ==
PROVIDERS: PCP Family Medicine; Referring Provider Physician Assistant; Visit Provider Physician Assistant
DX: E87.5 Hyperkalemia (principal)
CPT/HCPCS: 36415; 80048

== ENCOUNTER → 2024-08-04 15:22 | Outpatient (CLI) | payer MEDICARE, OTHER, SELFPAY ==
[2024-08-04 16:25] LABS: BUN Creatinine Ratio 22.8 (6-22); Blood Urea Nitrogen 36 mg/dL (9-20); Calcium 9.4 mg/dL (8.4-10.2); Carbon Dioxide 22 mmol/L (22-32); Chloride 106 mmol/L (98-107); Estimated Glomerular Filt Rate 42 mL/min (>60); Glucose 151 mg/dL (80-110); HEMOLYSIS < 15 (0-50); Potassium 5.2 mmol/L (3.4-5.1); Sodium 139 mmol/L (137-145)
== END ==
LOC: LAB 15:23
PROVIDERS: PCP Family Medicine; Referring Provider Physician Assistant; Visit Provider Physician Assistant
DX: E87.5 Hyperkalemia (principal); N28.9 Disorder of kidney and ureter, unspecified
CPT/HCPCS: 36415; 80048

== ENCOUNTER → 2024-08-12 12:57 | Outpatient (CLI) | payer MEDICARE, OTHER, SELFPAY ==
[2024-08-12 15:18] LABS: Alanine Aminotransferase 23 IU/L (<50); Albumin 4.2 g/dL (3.5-5.0); Albumin Globulin Ratio 1.6 (1.0-2.8); Alkaline Phosphatase 54 U/L (38-126); Aspartate Aminotransferase 27 IU/L (17-59); BUN Creatinine Ratio 22.1 (6-22); Bilirubin Total 0.5 mg/dL (0.2-1.3); Blood Urea Nitrogen 31 mg/dL (9-20); Calcium 9.1 mg/dL (8.4-10.2); Carbon Dioxide 23 mmol/L (22-32); Chloride 108 mmol/L (98-107); Cholesterol 144 mg/dL (140-199); Estimated Glomerular Filt Rate 49 mL/min (>60); Globulin 2.6 g/dL (1.7-4.1); Glucose 181 mg/dL (80-110); HDL Cholesterol 48 mg/dL (40-60); HEMOLYSIS < 15 (0-50); LDL Cholesterol Calculated 50 mg/dL (<100); Sodium 138 mmol/L (137-145); Total Protein 6.8 g/dL (6.3-8.2); Triglycerides 230 mg/dL (35-150)
[2024-08-12 15:19] LABS: Potassium 5.4 mmol/L (3.4-5.1)
[2024-08-12 17:04] LABS: Creatinine Urine Random 70.23 mg/dL
[2024-08-12 17:14] LABS: Microalbumin Urine Random < 0.6 mg/dL (0-1.6)
== END ==
PROVIDERS: PCP Family Medicine; Referring Provider Internal Medicine Endocrinology, Diabetes & Metabolism; Visit Provider Internal Medicine Endocrinology, Diabetes & Metabolism
DX: E11.21 Type 2 diabetes mellitus with diabetic nephropathy (principal)
CPT/HCPCS: 36415; 80053; 80061; 82043; 82570; 83036

== ENCOUNTER → 2024-08-15 10:53 | Outpatient (CLI) | payer MEDICARE, OTHER, SELFPAY ==
[2024-08-15 12:18] LABS: Blood Urea Nitrogen 31 mg/dL (9-20); Calcium 9.5 mg/dL (8.4-10.2); Carbon Dioxide 24 mmol/L (22-32); Chloride 107 mmol/L (98-107); Estimated Glomerular Filt Rate 57 mL/min (>60); Glucose 157 mg/dL (80-110); HEMOLYSIS < 15 (0-50); Potassium 4.9 mmol/L (3.4-5.1); Sodium 139 mmol/L (137-145)
== END ==
LOC: LAB 10:54
PROVIDERS: PCP Family Medicine; Referring Provider Internal Medicine Endocrinology, Diabetes & Metabolism; Visit Provider Internal Medicine Endocrinology, Diabetes & Metabolism
DX: E87.5 Hyperkalemia (principal)
CPT/HCPCS: 36415; 80048

== ENCOUNTER → 2025-02-16 14:31 | Outpatient (CLI) | payer MEDICARE, OTHER, SELFPAY ==
[2025-02-16 15:13] LABS: Hemoglobin A1C% w Est Avg Glu 6.8 % (4.0-6.0)
[2025-02-16 15:32] LABS: BUN Creatinine Ratio 21.4 (6-22); Blood Urea Nitrogen 24 mg/dL (9-20); Calcium 9.1 mg/dL (8.4-10.2); Carbon Dioxide 27 mmol/L (22-32); Chloride 104 mmol/L (98-107); Estimated Glomerular Filt Rate > 60 mL/min (>60); Glucose 131 mg/dL (70-99); HEMOLYSIS < 15 (0-50); Potassium 5.1 mmol/L (3.4-5.1); Sodium 138 mmol/L (137-145)
[2025-02-16 17:32] LABS: Creatinine Urine Random 115.31 mg/dL
[2025-02-16 17:38] LABS: Microalbumin Urine Random 2.1 mg/dL (0-1.6)
== END ==
PROVIDERS: PCP Family Medicine; Referring Provider Internal Medicine Endocrinology, Diabetes & Metabolism; Visit Provider Internal Medicine Endocrinology, Diabetes & Metabolism
DX: E11.21 Type 2 diabetes mellitus with diabetic nephropathy (principal)
CPT/HCPCS: 36415; 80048; 82043; 82570; 83036

== ENCOUNTER → 2025-05-12 14:15 | Outpatient (CLI) | payer MEDICARE, OTHER, SELFPAY ==
--- NOTE | 2025-05-12 14:23 | DI.RAD.S_ITS ---
PROCEDURE: XR WRIST RT MIN 3V INDICATIONS: wrist pain/swelling - ulnar side TECHNIQUE: Four views of the right wrist were acquired. COMPARISON: None. 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 This could indicate gout or pseudogout Dictated by: Nakul Saavedra M.D. on 05/13/2025 at 12:17 Approved by: Nakul Saavedra M.D. on 05/13/2025 at 12:18
[2025-05-12 15:07] LABS: Add Manual Diff / Slide Review NO; Hematocrit 34.6 % (41-53); Hemoglobin 11.7 g/dL (13.5-17.5); Lymphocytes Absolute Auto 1800 /uL (1100-4500); Mean Corpuscular HGB Conc 33.8 % (30-36); Mean Corpuscular Hemoglobin 29.8 PG (26-34); Mean Corpuscular Volume 88.1 fL (80-100); Platelet Count 257 X10^3/uL (150-400)
[2025-05-12 15:20] LABS: Hemoglobin A1C% w Est Avg Glu 7.6 % (4.0-6.0)
[2025-05-12 15:28] LABS: Alanine Aminotransferase 22 IU/L (<50); Albumin 4.4 g/dL (3.5-5.0); Albumin Globulin Ratio 1.6 (1.0-2.8); Alkaline Phosphatase 48 U/L (38-126); Blood Urea Nitrogen 42 mg/dL (9-20); Calcium 9.2 mg/dL (8.4-10.2); Carbon Dioxide 19 mmol/L (22-32); Chloride 108 mmol/L (98-107); Estimated Glomerular Filt Rate 57 mL/min (>60); Globulin 2.8 g/dL (1.7-4.1); Glucose 200 mg/dL (70-99); HEMOLYSIS < 15 (0-50); Sodium 138 mmol/L (137-145); Total Protein 7.2 g/dL (6.3-8.2); Uric Acid 10.3 mg/dL (3.5-8.5)
[2025-05-12 15:30] LABS: Potassium 5.6 mmol/L (3.4-5.1)
[2025-05-12 15:58] LABS: Microalbumi Creatinin Ratio Ur 27.0 ug/mg CR (<30)
== END ==
PROVIDERS: PCP Family Medicine; Referring Provider Physician Assistant; Visit Provider Internal Medicine Endocrinology, Diabetes & Metabolism
DX: E11.21 Type 2 diabetes mellitus with diabetic nephropathy (principal); M10.9 Gout, unspecified; E87.5 Hyperkalemia
CPT/HCPCS: 36415; 73110; 80053; 82043; 82570; 83036; 84132; 84550; 85025; 85651

== ENCOUNTER → 2025-05-12 15:50 | Outpatient (CLI) | payer MEDICARE, OTHER, SELFPAY ==
[2025-05-12 17:24] LABS: HEMOLYSIS < 15 (0-50)
[2025-05-12 17:43] LABS: Potassium 5.8 mmol/L (3.4-5.1)
== END ==
PROVIDERS: PCP Family Medicine; Referring Provider Physician Assistant; Visit Provider Physician Assistant
DX: E87.5 Hyperkalemia (principal)
CPT/HCPCS: 36415; 84132

== ENCOUNTER → 2025-05-22 11:02 | Outpatient (CLI) | payer MEDICARE, OTHER, SELFPAY ==
[2025-05-22 12:23] LABS: HEMOLYSIS < 15 (0-50); Potassium 5.3 mmol/L (3.4-5.1)
== END ==
LOC: LAB 11:03
PROVIDERS: PCP Family Medicine; Referring Provider Physician Assistant; Visit Provider Physician Assistant
DX: E87.5 Hyperkalemia (principal)
CPT/HCPCS: 36415; 84132

== ENCOUNTER → 2025-05-28 10:28 | Outpatient (CLI) | payer MEDICARE, OTHER, SELFPAY ==
[2025-05-28 12:20] LABS: Blood Urea Nitrogen 36 mg/dL (9-20); Calcium 9.4 mg/dL (8.4-10.2); Carbon Dioxide 25 mmol/L (22-32); Chloride 102 mmol/L (98-107); Estimated Glomerular Filt Rate 52 mL/min (>60); Glucose 196 mg/dL (70-99); HEMOLYSIS < 15 (0-50); Potassium 5.1 mmol/L (3.4-5.1); Sodium 138 mmol/L (137-145)
== END ==
PROVIDERS: PCP Family Medicine; Referring Provider Family Medicine; Visit Provider Family Medicine
DX: E87.5 Hyperkalemia (principal)
CPT/HCPCS: 36415; 80048